=== PATIENT | female | born 1935 | race Two or more races ===

== ENCOUNTER 2025-08-18 16:02 | Inpatient (IN) | payer OTHER ==
[~2025-08-18] VITALS: Ht 144.8 cm; Wt 44.9 kg
--- NOTE | 2025-08-18 16:38 | ECG ---
[facility] Test Date: 2025-08-18 Test Time: 16:22:23 Pat Name: CHRISTA SUTTON Department: Room: Gender: F [employer] Supervisor: FAUSTO : 1935 Requested By: DEZ BUTLER Order Number: [id number] Reading MD: Nuno Diaz Measurements Intervals [place] Rate: 101 P: 45 ND: 175 QRS: -35 QRSD: 88 T: -2 QT: 347 QTc: 450 Interpretive Statements Sinus tachycardia Inferior infarct, old Electronically Signed On 08-18-2025 19:19:47 PDT by Nuno Diaz Please click the below link to view image of tracing.
[2025-08-18] MEDS: HYDROcodone-ACET 5/325MG TAB PO ONE (16:45)
--- NOTE | 2025-08-18 17:27 | DVH ---
CT HEAD WITHOUT CONTRAST INDICATION: L head injury s/p fall EXAM DATE: 08/18/2025 04:52 PM COMPARISON: None RADIATION DOSE: CTDIvol: 50.87 mGy, DLP: 50.87 mGy*cm PROCEDURE: CT scans of the head were obtained from the vertex to the skull base. Sagittal and coronal reconstructions were provided. All CT scans at this medical facility are performed using dose modulation techniques as appropriate t o a performed exam including the following: Automated exposure control was utilized; adjustment of th e MA and/or KV according to patient size; and use of iterative reconstruction technique. FINDINGS: No acute territorial infarct, intracranial hemorrhage, or mass effect. There are global involutional changes with compensatory prominence of the ventricles and sulci. Patchy periventricular and subcorti cesar white matter hypoattenuation is nonspecific but may be related to small vessel ischemic disease. The orbits are normal. There is mild mucosal thickening within the maxillary antra and ethmoid air ce lls. The mastoid air cells are clear. The osseous structures are unremarkable. IMPRESSION: 1. No acute territorial infarct, intracranial hemorrhage, or mass effect. 2. Age-related involutional changes. Chronic microvascular changes.
--- NOTE | 2025-08-18 17:43 | DVH ---
EXAM: CT LS SPINE WO CONTRAST INDICATION: low back pain s/p fall TECHNIQUE: Axial images of the lumbar spine have been obtained along with coronal and sagittal reform atted images. CT scans at this facility use dose modulation, iterative reconstruction, and/or weight based dosing when appropriate to reduce radiation dose to as low as reasonably achievable. COMPARISON: None Dose: CTDIvol: 10.04 mGy, DLP: 283.32 mGy.cm FINDINGS: Age-indeterminate severe compression fractures of T12 and L1 with minimal retropulsion. Age-indetermi maribell vjfm-at-vldrrhey compression fracture of L4. A faint lucency is seen within the right L1 transve rse process such that an acute nondisplaced fracture cannot be excluded. There are degenerative valero es of the lumbar spine characterized by endplate osteophytosis. Intervertebral disc height are maint ained. There is facet arthropathy most pronounced within the lower lumbar spine. There is mild levosc oliosis. The paraspinal soft tissues are unremarkable. There is an incompletely assessed infrarenal a bdominal aortic aneurysm measuring up to at least 3.4 cm. IMPRESSION: 1. Age-indeterminate thoracolumbar fractures as detailed with minimal retropulsion. Comparison with any prior outside imaging is suggested in the assessing acuity and interval change. If clinically in dicated, MRI may be beneficial in further assessment. 2. Possible acute nondisplaced right L1 transverse process fracture. 3. Degenerative changes of the lumbar spine as detailed. 4. Incompletely assessed 3.4 cm abdominal aortic aneurysm. Comparison with any prior imaging is sugg ested in assessing acuity and interval change. If no prior imaging is available, dedicated CTA of t he abdomen/pelvis would be beneficial in further characterization.
--- NOTE | 2025-08-18 17:45 | DVH ---
CLINICAL HISTORY: L neck pain s/p fall TECHNIQUE: CT exam of the cervical spine was performed without intravenous contrast. This exam was pe rformed according to our departmental dose optimization program. Up-to-date CT equipment and radiatio n dose reduction techniques are utilized as appropriate. CTDI 9.09 DLP 9.09 COMPARISON: None Dose: CTDIvol: 9.09 mGy, DLP: 190.8 mGy. cm FINDINGS: There is no acute displaced fracture. There are degenerative changes of the cervical spine character ized by endplate osteophytosis and intervertebral disc space narrowing. There is multilevel mild endp late irregularity. There is grade 1 anterolisthesis of C5 on C6. There is no CT evidence of high-grad e spinal stenosis. There is degenerative uncovertebral and facet hypertrophy without significant neur al foraminal narrowing. The paraspinal soft tissues are unremarkable. IMPRESSION: 1. No acute displaced fracture. 2. Degenerative changes of the cervical spine as detailed.
[2025-08-18 17:56] LABS: Hematocrit 36.5 % (36.0-46.0); Hemoglobin 12.3 g/dL (12.2-16.2); Mean Corpuscular Hemoglobin 30.8 pg (28.0-32.0); Mean Corpuscular Volume 91.1 fL (80.0-100.0); Nucleated Red Blood Cells % 0.1 %
--- NOTE | 2025-08-18 17:59 | DVH ---
EXAM: CT PELVIS WO CONTRAST INDICATION: L hip pain s/p fall TECHNIQUE: Axial images of pelvis without contrast have been obtained along with coronal and sagittal reformatted images. All CT scans at this facility use dose modulation, iterative reconstruction, and /or weight based dosing when appropriate to reduce radiation dose to as low as reasonably achievable. COMPARISON: CT LS SPINE WO CONTRAST on DOS: 08/18/25 FINDINGS: BONES: Significant chronic likely pathologic fracture with prior hardware removal and subsequent surr ounding thickening along the right hip joint. Acute slightly comminuted, largely nondisplaced bilater al pubic tubercle fractures contour abnormalities likely compatible with age-indeterminate insuffici ency fractures of the left inferior pubic ramus and bilateral acetabula. Significant right acetabular osseous remodeling. Correlate for chronic erosive change of the right hip joint status post prior wells rdware removal. Superimposed infection not excluded. MUSCLES: Severe asymmetric atrophy of the right hip abductors. JOINT SPACES: Right hip joint space thickening with increased density TENDONS/LIGAMENTS: Intact. OTHER: Vascular calcifications. Mild stool burden. Mild sigmoid diverticulosis. Superior endplate hei ght loss measuring 20-30 percent of the L4. IMPRESSION: 1. Significant chronic likely pathologic fracture with prior hardware removal and subsequent surround ing thickening along the right hip joint. 2. Acute slightly comminuted, largely nondisplaced bilateral pubic tubercle fractures contour abnorma lities likely compatible with a age-indeterminate insufficiency fractures of the left inferior pubic ramus and bilateral acetabula. 3. Significant right acetabular osseous remodeling. 4. Correlate for chronic erosive change of the right hip joint status post prior hardware removal. 5. Superimposed infection not excluded.
[2025-08-18 18:04] LABS: Chloride 102 mmol/L (98-107); Potassium 4.1 mmol/L (3.5-5.1)
[2025-08-18 18:05] LABS: Anion Gap 11 (5-15); Calcium 8.9 mg/dL (8.7-10.4); Carbon Dioxide 23 mmol/L (20-31)
--- NOTE | 2025-08-18 18:06 | DVH ---
EXAM: XY L SHOULDER 2+ VIEW XRAY INDICATION: Pain L shoulder pain s/p fall TECHNIQUE: 3 views of the left shoulder COMPARISON: None available at the time of dictation. FINDINGS/IMPRESSION: There is no acute fracture, osseous malalignment, or aggressive focal osseous lesion of the left shou lder. There is no radiographically apparent joint space narrowing. Severe degenerative change of the left glenohumeral joint. Likely intra-articular body versus soft tissue calcification measuring up 10 mm of the level of the left proximal humerus. Question age-indeterminate superior endplate height lo ss of the midthoracic vertebra.
[2025-08-18 18:10] LABS: BUN/Creatinine Ratio 25.0 (10.0-20.0); Blood Urea Nitrogen 22 mg/dL (9-23)
--- NOTE | 2025-08-18 18:18 | ED.PDOC ---
History of Present Illness HPI Comments 89-year-old female with a history of hypertension and degenerative disc disease, wheelchair-bound due to previous right hip injury brought in by family for evaluation of body pain after a fall yesterday. Per daughter, patient is not supposed to independently transfer from wheelchair to the commode, however yesterday morning she attempted to do so. She states she felt dizzy and fell while trying to transfer from the toilet to her bed. She states she hit the left side of her head on a carpeted floor, but did not lose consciousness. She is currently complaining of left-sided headache, left neck pain, left shoulder pain, left hip pain and lower back pain. She denies any dizziness, numbness, new focal weakness or other injury. Chief Complaint: Fall Injury Time Seen by MD: 16:16 Allergies: Coded Allergies: NO KNOWN ALLERGIES (Unverified , 08/18/25) Mode of Arrival: Wheelchair Past Medical History PAST MEDICAL HISTORY: HTN Past Medical History (Other): Degenerative disc disease, chronic left shoulder subluxation,?AAA Surgical History: Hysterectomy Surgical History (Other): Right hip GLOBAL MARKETING MANAGER History: No Pertinent GLOBAL MARKETING MANAGER History Family History Family History: Reviewed,noncontributory to illness Social History Smoker: Non-Smoker Alcohol: Denies ETOH Use Drugs: Denies Drug Use Lives In: Home All Other Systems: Reviewed and Negative (Comprehensive systems review obtained and negative except for what is stated in the HPI.) Physical Exam General Appearance: No Apparent Distress HEENT: Other (Pupils and face symmetric. Moist mucous membranes. No facial or scalp hematoma, edema or tenderness) Neck: Full Range of Motion, Normal Inspection, Supple, Tender Lateral (Left paraspinal and lateral neck soft tissue tenderness ) Respiratory: Chest Non-Tender, Lungs Clear, No Accessory Muscle Use, No Respiratory Distress, Normal Breath Sounds Cardiovascular: No Edema, No JVD, Regular Rate/Rhythm Breast Exam: Deferred Gastrointestinal: Non Tender, Soft Genitalia: Deferred Pelvic: Deferred Rectal: Deferred Extremities: Normal inspection, Normal range of motion, No pedal edema Musculoskeletal : Location: Left Extremity Location: Back (Lumbar midline and left paraspinal tenderness), Hip (Left hip tenderness), Pelvis (Left inguinal tenderness and pubic symphysis area tenderness) Neurologic: Alert (Oriented x4), Other (Moves all extremities. Sensation grossly intact all extremities.) Cerebellar Function: NOT DONE Reflexes: NOT DONE Skin: Dry, Normal Color, Warm, Other (Left shoulder bruising with soft tissue tenderness.) Lymphatic: NOT DONE Was a procedure done? Was a procedure done?: No EKG EKG : Comments Sinus tach, rate 101, normal WA and QRS intervals, QTC 450, left axis deviation, possible old inferior infarct, nonspecific T change. Differential Dx Considerations may include: Contusion, sprain, strain, fracture, dislocation, electrolyte imbalance, CVA, TIA, infection, among others X-Ray, Labs, Meds, VS Vital Signs Date Time Temp Pulse Resp B/P (MAP) Pulse Ox O2 Delivery O2 Flow Rate FiO2 08/18/25 19:50 19 95 Room Air* 0 21 08/18/25 19:40 99.0 95 19 132/107 (115) 95 99.0 08/18/25 16:22 101 08/18/25 16:09 98.1 101 18 106/71 94 98.1 Lab Test 08/18/25 19:15 08/18/25 17:44 08/18/25 16:28 Range/Units Troponin I High Sensitivity 3 L < 3 L </=34 ng/L White Blood Count 6.5 4.4-10.8 10^3/uL Red Blood Count 4.00 4.0-5.20 10^6/uL Hemoglobin 12.3 12.2-16.2 g/dL Hematocrit 36.5 36.0-46.0 % Mean Corpuscular Volume 91.1 80.0-100.0 fL Mean Corpuscular Hemoglobin 30.8 28.0-32.0 pg Mean Corpuscular Hemoglobin Concent 33.8 32.0-36.0 g/dL Red Cell Distribution Width 13.1 11.8-14.3 % Platelet Count 168 140-450 10^3/uL Mean Platelet Volume 8.3 6.9-10.8 fL Neutrophils (%) (Auto) 60.7 37.0-80.0 % Lymphocytes (%) (Auto) 28.2 10.0-50.0 % Monocytes (%) (Auto) 7.3 0.0-12.0 % Eosinophils (%) (Auto) 3.1 0.0-7.0 % Basophils (%) (Auto) 0.7 0.0-2.0 % Neutrophils # (Auto) 3.9 1.6-8.6 10 ^3/uL Lymphocytes # (Auto) 1.8 0.4-5.4 10 ^3/uL Monocytes # (Auto) 0.5 0-1.3 10 ^3/uL Eosinophils # (Auto) 0.2 0-0.8 10 ^3/uL Basophils # (Auto) 0 0-0.2 10 ^3/uL Nucleated Red Blood Cells 0.1 % Sodium Level 136 136-145 mmol/L Potassium Level 4.1 3.5-5.1 mmol/L Chloride Level 102 98-107 mmol/L Carbon Dioxide Level 23 20-31 mmol/L Anion Gap 11 5-15 Blood Urea Nitrogen 22 9-23 mg/dL Creatinine 0.88 0.550-1.02 mg/dL Glomerular Filtration Rate Calc 63 >90 mL/min BUN/Creatinine Ratio 25.0 H 10.0-20.0 Serum Glucose 121 H 74-106 mg/dL Calcium Level 8.9 8.7-10.4 mg/dL B-Type Natriuretic Peptide 155.83 0-100 pg/mL POC Glucose 169 H 70-106 mg/dl Current Medications Medications (Trade) Dose Ordered Sig/Pina Route Start Time Stop Time Status Last Admin Acetaminophen/ Hydrocodone Bitart ([place] 5/325MG Tab) 1 tab ONCE ONCE PO 08/18/25 16:45 08/18/25 16:46 DC 08/18/25 16:45 PROCEDURE(s): HWOCT - HEAD WITHOUT CONTRAST REASON: L head injury s/p fall ORDER NUMBER(s): [id number], ACCESSION NUMBER(s): [id number] CT HEAD WITHOUT CONTRAST INDICATION: L head injury s/p fall EXAM DATE: 08/18/2025 04:52 PM COMPARISON: None RADIATION DOSE: CTDIvol: 50.87 mGy, DLP: 50.87 mGy*cm PROCEDURE: CT scans of the head were obtained from the vertex to the skull base. Sagittal and coronal reconstructions were provided. All CT scans at this medical facility are performed using dose modulation techniques as appropriate to a performed exam including the following: Automated exposure control was utilized; adjustment of the MA and/or KV according to patient size; and use of iterative reconstruction technique. FINDINGS: No acute territorial infarct, intracranial hemorrhage, or mass effect. There are global involutional changes with compensatory prominence of the ventricles and sulci. Patchy periventricular and subcortical white matter hypoattenuation is nonspecific but may be related to small vessel ischemic disease. The orbits are normal. There is mild mucosal thickening within the maxillary antra and ethmoid air cells. The mastoid air cells are clear. The osseous structures are unremarkable. IMPRESSION: 1. No acute territorial infarct, intracranial hemorrhage, or mass effect. 2. Age-related involutional changes. Chronic microvascular changes. EDURE(s): CS2 - CERVICAL WITHOUT CONTRAST REASON: L neck pain s/p fall ORDER NUMBER(s): [id number], ACCESSION NUMBER(s): [id number] CLINICAL HISTORY: L neck pain s/p fall TECHNIQUE: CT exam of the cervical spine was performed without intravenous contrast. This exam was performed according to our departmental dose optimization program. Up-to-date CT equipment and radiation dose reduction techniques are utilized as appropriate. CTDI 9.09 DLP 9.09 COMPARISON: None Dose: CTDIvol: 9.09 mGy, DLP: 190.8 mGy. cm FINDINGS: There is no acute displaced fracture. There are degenerative changes of the cervical spine characterized by endplate osteophytosis and intervertebral disc space narrowing. There is multilevel mild endplate irregularity. There is grade 1 anterolisthesis of C5 on C6. There is no CT evidence of high-grade spinal stenosis. There is degenerative uncovertebral and facet hypertrophy without significant neural foraminal narrowing. The paraspinal soft tissues are unremarkable. IMPRESSION: 1. No acute displaced fracture. 2. Degenerative changes of the cervical spine as detailed. EDURE(s): LSHD2 - L SHOULDER 2+ VIEW XRAY REASON: L shoulder pain s/p fall ORDER NUMBER(s): [id number], ACCESSION NUMBER(s): [id number] EXAM: XY L SHOULDER 2+ VIEW XRAY INDICATION: Pain L shoulder pain s/p fall TECHNIQUE: 3 views of the left shoulder COMPARISON: None available at the time of dictation. FINDINGS/IMPRESSION: There is no acute fracture, osseous malalignment, or aggressive focal osseous lesion of the left shoulder. There is no radiographically apparent joint space narrowing. Severe degenerative change of the left glenohumeral joint. Likely intra-articular body versus soft tissue calcification measuring up 10 mm of the level of the left proximal humerus. Question age-indeterminate superior endplate height loss of the midthoracic vertebra. EDURE(s): LS2CT - LS SPINE WO CONTRAST REASON: low back pain s/p fall ORDER NUMBER(s): [id number], ACCESSION NUMBER(s): [id number] EXAM: CT LS SPINE WO CONTRAST INDICATION: low back pain s/p fall TECHNIQUE: Axial images of the lumbar spine have been obtained along with coronal and sagittal reformatted images. CT scans at this facility use dose modulation, iterative reconstruction, and/or weight based dosing when appropriate to reduce radiation dose to as low as reasonably achievable. COMPARISON: None Dose: CTDIvol: 10.04 mGy, DLP: 283.32 mGy.cm FINDINGS: Age-indeterminate severe compression fractures of T12 and L1 with minimal retropulsion. Age-indeterminate gmce-yj-brgvytae compression fracture of L4. A faint lucency is seen within the right L1 transverse process such that an acute nondisplaced fracture cannot be excluded. There are degenerative changes of the lumbar spine characterized by endplate osteophytosis. Intervertebral disc height are maintained. There is facet arthropathy most pronounced within the lower lumbar spine. There is mild levoscoliosis. The paraspinal soft tissues are unremarkable. There is an incompletely assessed infrarenal abdominal aortic aneurysm measuring up to at least 3.4 cm. IMPRESSION: 1. Age-indeterminate thoracolumbar fractures as detailed with minimal retropulsion. Comparison with any prior outside imaging is suggested in the assessing acuity and interval change. If clinically indicated, MRI may be beneficial in further assessment. 2. Possible acute nondisplaced right L1 transverse process fracture. 3. Degenerative changes of the lumbar spine as detailed. 4. Incompletely assessed 3.4 cm abdominal aortic aneurysm. Comparison with any prior imaging is suggested in assessing acuity and interval change. If no prior imaging is available, dedicated CTA of the abdomen/pelvis would be be neficial in further characterization. EDURE(s): PL2CT - PELVIS WO CONTRAST REASON: L hip pain s/p fall ORDER NUMBER(s): [id number], ACCESSION NUMBER(s): [id number] EXAM: CT PELVIS WO CONTRAST INDICATION: L hip pain s/p fall TECHNIQUE: Axial images of pelvis without contrast have been obtained along with coronal and sagittal reformatted images. All CT scans at this facility use dose modulation, iterative reconstruction, and/or weight based dosing when appropriate to reduce radiation dose to as low as reasonably achievable. COMPARISON: CT LS SPINE WO CONTRAST on DOS: 08/18/25 FINDINGS: BONES: Significant chronic likely pathologic fracture with prior hardware removal and subsequent surrounding thickening along the right hip joint. Acute slightly comminuted, largely nondisplaced bilateral pubic tubercle fractures contour abnormalities likely compatible with age-indeterminate insufficiency fractures of the left inferior pubic ramus and bilateral acetabula. Significant right acetabular osseous remodeling. Correlate for chronic erosive change of the right hip joint status post prior hardware removal. Superimposed infection not excluded. MUSCLES: Severe asymmetric atrophy of the right hip abductors. JOINT SPACES: Right hip joint space thickening with increased density TENDONS/LIGAMENTS: Intact. OTHER: Vascular calcifications. Mild stool burden. Mild sigmoid diverticulosis. Superior endplate height loss measuring 20-30 percent of the L4. IMPRESSION: 1. Significant chronic likely pathologic fracture with prior hardware removal and subsequent surrounding thickening along the right hip joint. 2. Acute slightly comminuted, largely nondisplaced bilateral pubic tubercle fractures contour abnormalities likely compatible with a age-indeterminate i nsufficiency fractures of the left inferior pubic ramus and bilateral acetabula. 3. Significant right acetabular osseous remodeling. 4. Correlate for chronic erosive change of the right hip joint status post prior hardware removal. 5. Superimposed infection not excluded. X-Ray, Labs, Meds, VS Comment 89-year-old female with a history of degenerative disc disease, hypertension and AAA presenting with body pain after a ground level fall Vitals remarkable for heart rate 101, oxygen saturation 94% on room air Exam remarkable for left-sided neck tenderness, left shoulder tenderness and bruising, left low back, left hip, left inguinal and pubic symphysis tenderness to palpation Rhythm strip independently interpreted by me: Sinus tach, rate 101, no ectopy. CT head, CT C-spine and left shoulder x-rays unremarkable for any acute injury CT lumbar spine: IMPRESSION: 1. Age-indeterminate thoracolumbar fractures as detailed with minimal retropulsion. Comparison with any prior outside imaging is suggested in the assessing acuity and interval change. If clinically indicated, MRI may be beneficial in further assessment. 2. Possible acute nondisplaced right L1 transverse process fracture. 3. Degenerative changes of the lumbar spine as detailed. 4. Incompletely assessed 3.4 cm abdominal aortic aneurysm. Comparison with any prior imaging is suggested in assessing acuity and interval change. If no prior imaging is available, dedicated CTA of the abdomen/pelvis would be beneficial in further characterization. CT pelvis: IMPRESSION: 1. Significant chronic likely pathologic fracture with prior hardware removal and subsequent surrounding thickening along the right hip joint. 2. Acute slightly comminuted, largely nondisplaced bilateral pubic tubercle fractures contour abnormalities likely compatible with a age-indeterminate insufficiency fractures of the left inferior pubic ramus and bilateral a cetabula. 3. Significant right acetabular osseous remodeling. 4. Correlate for chronic erosive change of the right hip joint status post prior hardware removal. 5. Superimposed infection not excluded. CBC, basic metabolic panel, BNP and troponin unremarkable. UA pending. Patient treated with the following in the ED: [place] 5/325 mg p.o. On re-evaluation at 6:57 p.m., the patient is still had not been medicated, so was still in pain. Plan is to admit the patient for pain control and ortho/PT/OT evaluation. Time of 1ST Reevaluation: 18:57 Reevaluation 1ST: Unchanged Patient Education/Counseling: Diagnosis, Treatment, Need For Follow Up Family Education/Counseling: Diagnosis, Treatment, Need For Follow Up SEPSIS Sepsis Screen Date sepsis recognized/suspect: Aug 18, 2025 Time Sepsis recognized/suspect: 1609 Recent Procedure: No On Antibiotic Therapy: No Respiratory Rate >20: No Heart Rate >90: Yes Temp<36 C (96.8 F) or >38.3 C: No SBP <90 or MAP <65 mmHG: No New Acute Mental Status Change: No Is the patient on CPAP, BIPAP,: No SEPSIS EXCLUSION NOTE: Sepsis Exclusion Note: Patient presents with SIRS criteria, but the SIRS response is attributed to [ pain], not a suspected infection. Sepsis bundle is not initiated at this time, due to this reason. Further management will focus on the treatment of the above condition (s). Physician Orders Electrocardigram (08/18/25 16:36) Urinalysis (08/18/25 16:39) Head Without Contrast (08/18/25 16:39) Cervical Without Contrast (08/18/25 16:39) Ls Spine Wo Contrast (08/18/25 16:39) Pelvis Wo Contrast (08/18/25 16:39) L Shoulder 2+ View Xray (08/18/25 16:39) Vital Signs Date Time Temp Pulse Resp B/P (MAP) Pulse Ox O2 Delivery O2 Flow Rate FiO2 08/18/25 19:50 19 95 Room Air* 0 21 08/18/25 19:40 99.0 95 19 132/107 (115) 95 99.0 08/18/25 16:22 101 08/18/25 16:09 98.1 101 18 106/71 94 98.1 Laboratory Tests Test 08/18/25 17:44 White Blood Count 6.5 10^3/uL (4.4-10.8) Medications Medications Dose Ordered Sig/Pina Route Start Time Stop Time Status Last Admin Dose Admin Acetaminophen/ Hydrocodone Bitart 1 tab ONCE ONCE PO 08/18/25 16:45 08/18/25 16:46 DC 08/18/25 16:45 Departure 1 Departure Time of Disposition: 18:58 Impression: Primary Impression: Pubic tubercle fracture Qualified Codes: S32.599A - Other specified fracture of unspecified pubis, i nitial encounter for closed fracture Additional Impression: Lumbar transverse process fracture Qualified Codes: S32.009A - Unspecified fracture of unspecified lumbar vertebra, initial encounter for closed fracture Disposition: ADMITTED INPATIENT Admit to: Med Surg Condition: Guarded Critical Care Note Critical Care Time?: No Stability Stability form required: No Heart Score Heart Score: Heart Score Response (Comments) Value History N/A 0 EKG N/A 0 Age N/A 0 Risk Factors N/A 0 Troponin N/A 0 Total 0 DEZ FLORES MD Aug 18, 2025 18:18
[2025-08-18 18:27] LABS: Glucose 121 mg/dL (74-106); Sodium 136 mmol/L (136-145)
[2025-08-18 19:50] VITALS: RESP 19; O2SAT 95
--- NOTE | 2025-08-18 22:55 | DVHHPRES ---
History of Present Illness Resident Creating Document: RYLAN TAM History of Present Illness Ms. Lundy is an 89-year-old female with prior medical history of hypertension, who presents today with chief complaint of back pain secondary to a fall. The patient is accompanied by her daughter who states that the patient is wheelchair-bound and fell at home on Monday morning while trying to transfer onto her commode by herself. The patient landed on the carpeted ground and hit her hip, back, head, and shoulder. The patient states that she immediately felt intense sharp pain on her lower back, nonradiating, intensity 10/10, aggravated by moving and touching the area, without relieving factors. Per the patient's daughter, in March 2025 the patient was taken to [facility] with a vertebral fracture. Persistent worsening of the pain prompted the patient to seek medical care at the ED. On evaluation in the ED, patient was tachycardic an d hypertensive. Initial labs CBC and chemical panel within normal range. CT lumbar spine shows age-indeterminate thoracolumbar fractures and possible acute nondisplaced right L1 transverse process fracture. pelvic CT shows acute slightly comminuted, largely nondisplaced bilateral pubic tubercle fractures. She was started on IV pain regimen. She was admitted for further workup and monitoring. Cardiovascular: HTN Musculoskeletal: Other (Vertebral fracture) Past Surgical History: Hysterectomy, Other (Hip replacement hardware removal), Total hip replacement Family History: None Smoke: No ALCOHOL: none Drugs: None Lives: with Family Review of Systems Review of Systems Constitutional: Denies weight loss, fever and chills. HEENT: Denies changes in vision and hearing. Respiratory: Denies shortness of breath and cough Cardiovascular: Denies chest discomfort or palpitations GI: Denies abdominal distention, abdominal pain, diarrhea : Denies dysuria and urinary frequency. Musculoskeletal: Refers neck, shoulder, lower back, and left hip pain Skin: Denies rash and pruritus. Neurological: denies dizziness headache vision or hearing problems Allergies: Coded Allergies: NO KNOWN ALLERGIES (Unverified , 08/18/25) Medications Current Medications Medications Dose Ordered Sig/Pina Route Start Time Stop Time Status Last Admin Dose Admin Lidocaine 1 patch DAILY TOP 08/19/25 10:00 Morphine Sulfate 1 mg Q6HP PRN IV 08/18/25 22:30 Exam Vital Signs Vital Signs Date Time Temp Pulse Resp B/P (MAP) Pulse Ox O2 Delivery O2 Flow Rate FiO2 08/18/25 19:50 19 95 Room Air* 0 21 08/18/25 19:40 99.0 95 132/107 (115) 99.0 Exam General: The patient alert and oriented in person place and time. Patient following commands HEENT: Normocephalic, atraumatic, normal reactive pupils, EOM intact, pink conjunctiva, pink moist mucous membrane Respiratory/pulmonary: Bilateral chest expansion, clear lungs bilaterally, vesicular murmurs present in almost all lung riley, no associated crackles or wheezes. Cardiovascular: Normal RRR, normal S1 and S2, no murmurs Abdomen: Abdomen nondistended, normal bowel sounds, soft, there is no pain to palpation in any of the abdominal quadrants, no palpable masses. Extremities: There are no deformities, there is no peripheral edema present at the lower extremities, decreased ability to flex left hip, pain on palpation of lower back and left and right hip, normal pulses are present Skin: No rashes or pruritus, there is no sacral edema present at this time. Neurological: Intact cranial nerves with no focal neurologic deficits Labs/Xrays Labs Test 08/18/25 19:15 08/18/25 17:44 08/18/25 16:28 Range/Units Troponin I High Sensitivity 3 L </=34 ng/L White Blood Count 6.5 4.4-10.8 10^3/uL Red Blood Count 4.00 4.0-5.20 10^6/uL Hemoglobin 12.3 12.2-16.2 g/dL Hematocrit 36.5 36.0-46.0 % Mean Corpuscular Volume 91.1 80.0-100.0 fL Mean Corpuscular Hemoglobin 30.8 28.0-32.0 pg Mean Corpuscular Hemoglobin Concent 33.8 32.0-36.0 g/dL Red Cell Distribution Width 13.1 11.8-14.3 % Platelet Count 168 140-450 10^3/uL Mean Platelet Volume 8.3 6.9-10.8 fL Neutrophils (%) (Auto) 60.7 37.0-80.0 % Lymphocytes (%) (Auto) 28.2 10.0-50.0 % Monocytes (%) (Auto) 7.3 0.0-12.0 % Eosinophils (%) (Auto) 3.1 0.0-7.0 % Basophils (%) (Auto) 0.7 0.0-2.0 % Neutrophils # (Auto) 3.9 1.6-8.6 10 ^3/uL Lymphocytes # (Auto) 1.8 0.4-5.4 10 ^3/uL Monocytes # (Auto) 0.5 0-1.3 10 ^3/uL Eosinophils # (Auto) 0.2 0-0.8 10 ^3/uL Basophils # (Auto) 0 0-0.2 10 ^3/uL Nucleated Red Blood Cells 0.1 % Sodium Level 136 136-145 mmol/L Potassium Level 4.1 3.5-5.1 mmol/L Chloride Level 102 98-107 mmol/L Carbon Dioxide Level 23 20-31 mmol/L Anion Gap 11 5-15 Blood Urea Nitrogen 22 9-23 mg/dL Creatinine 0.88 0.550-1.02 mg/dL Glomerular Filtration Rate Calc 63 >90 mL/min BUN/Creatinine Ratio 25.0 H 10.0-20.0 Serum Glucose 121 H 74-106 mg/dL Calcium Level 8.9 8.7-10.4 mg/dL B-Type Natriuretic Peptide 155.83 0-100 pg/mL POC Glucose 169 H 70-106 mg/dl SEPSIS Sepsis Screen Date sepsis recognized/suspect: Aug 18, 2025 Time Sepsis recognized/suspect: 1609 Recent Procedure: No On Antibiotic Therapy: No Respiratory Rate >20: No Heart Rate >90: Yes Temp<36 C (96.8 F) or >38.3 C: No SBP <90 or MAP <65 mmHG: No New Acute Mental Status Change: No Is the patient on CPAP, BIPAP,: No Physician Orders Electrocardigram (08/18/25 16:36) Urinalysis (08/18/25 16:39) Head Without Contrast (08/18/25 16:39) Cervical Without Contrast (08/18/25 16:39) Ls Spine Wo Contrast (08/18/25 16:39) Pelvis Wo Contrast (08/18/25 16:39) L Shoulder 2+ View Xray (08/18/25 16:39) Admit (08/18/25 22:21) Code Status (08/18/25 22:21) Vital Signs .PER UNIT PROTOCOL (08/18/25 22:21) Review Orders With Adm. (08/18/25 22:21) Notify Md Of Changes From Base (08/18/25 22:21) Advance Directive (08/18/25 22:21) Patient Condition (08/18/25 22:21) Allergies (08/18/25 22:21) Stat Ekg For Chest Pain (08/18/25 22:21) Notify Md Of Changes From Base (08/18/25 22:21) Emergency Dysrhythmia Protocol (08/18/25 22:21) Rhythm Strips Once Every Shift (08/18/25 22:21) PTPTT (08/18/25 22:21) Hepatic Panel (08/18/25 22:21) Thyroid Stimulating Hormone (08/18/25 22:21) Vitamin D, 25-Hydroxy (08/18/25 22:21) Magnesium (08/18/25 22:21) Phosphorus (08/18/25 22:21) Hemoglobin A1c (08/18/25 22:21) Lactic Acid W/ Reflex Order (08/18/25 22:21) Vitamin B12 (08/18/25 22:21) Consultdr. Fabrice Beck(Spine) (08/18/25 22:21) Drug Screen (08/18/25 22:21) Lidocaine 5% Topical Patch (Lidoderm 5% (08/19/25 10:00) Morphine Sulfate Injection (08/18/25 22:30) Vital Signs Date Time Temp Pulse Resp B/P (MAP) Pulse Ox O2 Delivery O2 Flow Rate FiO2 08/18/25 19:50 19 95 Room Air* 0 21 08/18/25 19:40 99.0 95 19 132/107 (115) 95 99.0 08/18/25 16:22 101 08/18/25 16:09 98.1 101 18 106/71 94 98.1 Laboratory Tests Test 08/18/25 17:44 White Blood Count 6.5 10^3/uL (4.4-10.8) Medications Medications Dose Ordered Sig/Pina Route Start Time Stop Time Status Last Admin Dose Admin Acetaminophen/ Hydrocodone Bitart 1 tab ONCE ONCE PO 08/18/25 16:45 08/18/25 16:46 DC 08/18/25 16:45 1 TAB Assessment/Plan Assessment/Plan Assessment and Plan: Acute nondisplaced right L1 transverse process fracture -CT lumbar spine: Possible acute nondisplaced right L1 transfer process fracture -[place] 5/325 mg p.o. once -Morphine 1 mg IV q.6 hours PRN -Spine surgery consult placed -Patient placed on NPO pending spine surgery evaluation Severe age indeterminate thoracolumbar fractures with minimal retropulsion -CT lumbar spine: Age-indeterminate severe compression fractures of T12 and L1 with minimal retropulsion. Age-indeterminate mild to moderate compression fracture of L4. -As above Acute slightly comminuted, nondisplaced bilateral pubic tubercle fractures -CT pelvis: Acute slightly comminuted, largely nondisplaced bilateral pubic tubercle fractures contour abnormalities likely compatible with a age- indeterminate insufficiency fractures of the left inferior pubic ramus and bilateral acetabula. -As above Abdominal aortic aneurysm -CT lumbar spine: Incompletely assessed 3.4 cm abdominal aortic aneurysm. -Outpatient follow-up Hypertension -Losartan 50 mg p.o. daily Diet: NPO GI prophylaxis: Protonix 40 mg IV daily DVT prophylaxis: Lovenox 40 mg sc daily Case discussed with Dr. Thomason Goals of care discussed with the patient and her daughter for over 27 minutes. Full code. Plan discussed with: Patient, Daughter My Orders Orders - RYLAN TAM RESIDENT Procedure Category Date Status Time Admit ADMIT 08/18/25 Transmitted 22:21 Code Status CODE 08/18/25 Transmitted 22:21 Vital Signs BANNER 08/18/25 In Process 22:21 Review Orders With BANNER 08/18/25 In Process Adm. 22:21 Notify Of Changes BANNER 08/18/25 In Process From Base 22:21 Advance Directive [place]AN[place] 08/18/25 In Process 22:21 Patient Condition ORDERS 08/18/25 Transmitted 22:21 Allergies BANNER 08/18/25 In Process 22:21 Stat Ekg For Chest BANNER 08/18/25 In Process Pain 22:21 Notify Of Changes BANNER 08/18/25 In Process From Base 22:21 Emergency Dysrhythmia BANNER 08/18/25 In Process Protocol 22:21 Rhythm Strips Once BANNER 08/18/25 In Process Every Shift 22:21 PTPTT LAB 08/18/25 Logged 22:21 Hepatic Panel LAB 08/18/25 In Process 22:21 Thyroid Stimulating LAB 08/18/25 In Process Hormone 22:21 Vitamin D, 25-Hydroxy LAB 08/18/25 In Process 22:21 Magnesium LAB 08/18/25 In Process 22:21 Phosphorus LAB 08/18/25 In Process 22:21 Hemoglobin A1c LAB 08/18/25 In Process 22:21 Lactic Acid W/ Reflex LAB 08/18/25 Logged Order 22:21 Vitamin B12 LAB 08/18/25 In Process 22:[address] Fabrice CONS 08/18/25 Transmitted [place](Spine) 22:21 Drug Screen LAB 08/18/25 Logged 22:21 Lidocaine 5% Topical PHA 08/19/25 In Process Patch (Lidoderm 5% 10:00 Morphine Sulfate PHA 08/18/25 In Process Injection 22:30 Date of Service: Aug 18, 2025 Billing Provider: PAM THOMASON MD Common Visit Codes: [id number] INP/OBS CARE (HIGH) Secondary Visit Codes: [id number] CARE PLAN 30 MINUTES RYLAN ATM RESIDENT Aug 18, 2025 22:55 ABISAI [place] RESIDENT Aug 19, 2025 04:20
[2025-08-18 23:17] LABS: Alanine Aminotransferase 14.0 U/L (7-40); Albumin 4.3 g/dL (3.2-4.8); Alkaline Phosphatase 79.0 U/L (46-116); Bilirubin, Direct 0.2 mg/dL (<0.3); Magnesium 1.9 mg/dL (1.6-2.6); Total Protein 7.9 g/dL (5.7-8.2)
[2025-08-18 23:18] LABS: Bilirubin, Total 0.7 mg/dL (0.2-1.0)
[2025-08-18 23:20] LABS: Amphetamine Screen, Urine Neg (NEGATIVE); Barbiturate Scree,Urine Neg (NEGATIVE); Benzodiazephine Screen, Urine Neg (NEGATIVE); Cannabinoid Screen, Urine Neg (NEGATIVE); Cocaine Screen, Urine Neg (NEGATIVE); Opiate Scree,Urine Neg (NEGATIVE); Phencyclidine Screen, Urine Neg (NEGATIVE)
[2025-08-19] VITALS (7 sets, daily range): BP systolic 106–161; BP diastolic 60–124; PULSE 60–89; RESP 16–18; TEMP 97.2–98.6; O2SAT 93–98
[2025-08-19 00:14] LABS: INR 1.03 (0.9-1.15); Partial Thromboplastin Time 30.0 SEC (24.5-34.5); Prothrombin Time 10.9 sec (9.3-11.8)
[2025-08-19] MEDS: MORPHINE SULFATE INJ 2 MG/ml SYRG IV ONE (00:46)
[2025-08-19] MEDS ORDERED: LOSA-534 PO (01:33)
[2025-08-19] MEDS ORDERED: ASPI81CH59 PO (01:33)
[2025-08-19] MEDS ORDERED: MELO15TA29 PO (01:33)
[2025-08-19] MEDS ORDERED: DICL1GEL73 TOP (01:33)
[2025-08-19] MEDS ORDERED: LACT10SO3 PO (01:34)
[2025-08-19] MEDS ORDERED: SENN-105 PO (01:34)
[2025-08-19] MEDS: PANTOPRAZOLE 40 MG/10 ML VIAL INJ IV ONE (04:21)
[2025-08-19] MEDS: SODIUM CHLORIDE 0.9% 1,000 ML IV SCH (04:22)
[2025-08-19 07:40] LABS: Hematocrit 37.1 % (36.0-46.0); Hemoglobin 12.6 g/dL (12.2-16.2); Mean Corpuscular Hemoglobin 30.3 pg (28.0-32.0); Mean Corpuscular Volume 89.1 fL (80.0-100.0); Nucleated Red Blood Cells % 0.1 %
[2025-08-19] MEDS: MORPHINE SULFATE INJ 2 MG/ml SYRG IV PRN (08:39)
[2025-08-19] MEDS: PANTOPRAZOLE 40 MG/10 ML VIAL INJ IV SCH (08:40)
[2025-08-19 08:59] LABS: Carbon Dioxide 28 mmol/L (20-31); Chloride 106 mmol/L (98-107)
[2025-08-19 09:00] LABS: Anion Gap 9 (5-15); Sodium 143 mmol/L (136-145)
[2025-08-19 09:06] LABS: BUN/Creatinine Ratio 13.8 (10.0-20.0)
[2025-08-19 09:23] LABS: Blood Urea Nitrogen 8 mg/dL (9-23); Calcium 8.6 mg/dL (8.7-10.4); Glucose 116 mg/dL (74-106); Potassium 3.4 mmol/L (3.5-5.1)
--- NOTE | 2025-08-19 10:32 | DVHPNRES ---
Progress Note Date Seen: Aug 19, 2025 Resident Creating Document: JACKIE MARTINEZ RESIDENT Has the PT tested + for MRSA If YES, has PT been informed?: No Medical Necessity Reason Pt with a Central, PICC or Fol: No Subjective Review of Systems Patient is a Citizen Of [place]-speaking 89-year-old female with past medical history of hypertension and degenerative disc disease presented to [facility] ED with complaint of body pain and headache following a fall at home. According to her daughter, the patient attempted to transfer independently from the wheelchair to bathroom. During the transfer, she felt dizzy and fell, landing on a carpeted floor and striking the left side of her head, hip, back, and shoulder. She did not lose consciousness. She reports a 10/10 sharp, non- radiating lower back pain aggravated by movement and touch, along with left- sided headache, neck pain, shoulder pain, and hip pain. She denies dizziness, numbness, new focal weakness, or other injuries. Notably, she had a vertebral fracture in March 2025. On ED evaluation, she was tachycardic and hypertensive. Labs including CBC and chemistry panel were within normal limits. Imaging revealed age-indeterminate thoracolumbar fractures, a possible acute nondisplaced right L1 transverse process fracture, and acute, slightly comminuted, largely nondisplaced bilateral pubic tubercle fractures. She was started on IV pain management and admitted for further monitoring and workup. Past medical history: HTN, Vertebral fracture Past surgical history: Hysterectomy, Hip replacement hardware removal, Total hip replacement Social & Personal history: Smoke: No. Alcohol: none. Drugs: None Patient seen and examined at bedside. Patient is alert and oriented to time, place person and responding to all questions. Eyes: No Pain, No Vision change, No Conjunctivae inflammation, No Eyelid inflammation, No Other, No Redness ENT: No Ear pain, No Ear discharge, No Nose pain, No Nose discharge, No Nose congestion, No Mouth pain, No Mouth swelling, No Throat pain, No Throat swelling, No Other Cardiovascular: No Chest Pain, No Palpitations, No Orthopnea, No Paroxysmal No Dyspnea, No Edema, No Lt Headedness, No Other Respiratory: No Cough, No Dry, No Shortness of breath, No SOB with exertion, No Wheezing, No Hemoptysis, No Pleuritic Pain, No Sputum, No Other Gastrointestinal: No Nausea, No Vomiting, No Abdominal Pain, No Diarrhea, No Constipation, No Melena, No Hematochezia, No Other Genitourinary: No Dysuria, No Frequency, No Incontinence, No Hematuria, No Retention, No Other Musculoskeletal: Shoulder pain. No other, No neck pain, No arm pain, No back pain, No hand pain, No leg pain, No foot pain Skin: No Rash, No Lesions, No Jaundice, No Bruising, No Other Objective vital signs Vital Sign Date Time Temp Pulse Resp B/P (MAP) Pulse Ox O2 Delivery O2 Flow Rate FiO2 08/19/25 08:39 79 18 140/79 08/19/25 05:00 98.6 98 98.6 08/19/25 01:29 Room Air* 0 21 Total Intake and Output 08/18/25 08/18/25 08/19/25 14:59 22:59 06:59 Intake Total 540 ml Balance 540 ml medications Current Medications Medications Dose Ordered Sig/Pina Route Start Time Stop Time Status Last Admin Dose Admin Lidocaine 1 patch DAILY TOP 08/19/25 10:00 Morphine Sulfate 1 mg Q6HP PRN IV 08/18/25 22:30 08/19/25 08:39 1 MG Losartan Potassium 50 mg DAILY PO 08/19/25 10:00 Pantoprazole Sodium 40 mg DAILY IV 08/19/25 10:00 08/19/25 08:40 40 MG Sodium Chloride 1,000 ml @ 30 mls/hr Q24H IV 08/19/25 03:00 08/19/25 04:22 30 MLS/HR Examination General: The patient alert and oriented in person place and time. Patient following commands HEENT: Normocephalic, atraumatic, normal reactive pupils, EOM intact, pink conjunctiva, pink moist mucous membrane Respiratory/pulmonary: Bilateral chest expansion, clear lungs bilaterally, vesicular murmurs present in almost all lung riley, no associated crackles or wheezes. Cardiovascular: Normal RRR, normal S1 and S2, no murmurs Abdomen: Abdomen nondistended, normal bowel sounds, soft, there is no pain to palpation in any of the abdominal quadrants, no palpable masses. Extremities: There are no deformities, there is no peripheral edema present at the lower extremities, decreased ability to flex left hip, pain on palpation of lower back and left and right hip, normal pulses are present Skin: No rashes or pruritus, there is no sacral edema present at this time. Neurological: Intact cranial nerves with no focal neurologic deficits laboratory and microbiology Laboratory Tests 08/19/25 07:17 Test 08/19/25 07:17 Range/Units Serum Glucose 116 H 74-106 mg/dL Labs and/or images reviewed: Labs reviewed by me, Image(s) reviewed by me Problem List/Assessment/Plan Problem List/Assessment/Plan Acute nondisplaced right L1 transverse process fracture Severe age indeterminate thoracolumbar fractures with minimal retropulsion Acute slightly comminuted, nondisplaced bilateral pubic tubercle fractures Severe degenerative change of the left glenohumeral joint -CT lumbar spine: Possible acute nondisplaced right L1 transfer process fracture -[place] 5/325 mg p.o. once -Morphine 1 mg IV q.6 hours PRN -Patient placed on NPO pending spine surgery evaluation -Lidocaine 1 patch -CT lumbar spine: Age-indeterminate severe compression fractures of T12 and L1 with minimal retropulsion. Age-indeterminate mild to moderate compression fracture of L4, Acute slightly comminuted, largely nondisplaced bilateral pubic tubercle fractures contour abnormalities likely compatible with a age- indeterminate insufficiency fractures of the left inferior pubic ramus and bilateral acetabula. -Shoulder X-ray: Likely intra-articular body versus soft tissue calcification measuring up 10 mm of the level of the left proximal humerus. Question age- indeterminate superior endplate height loss of the midthoracic vertebra. - spine surgery consulted recommended conservative management Abdominal aortic aneurysm -CT lumbar spine: Incompletely assessed 3.4 cm abdominal aortic aneurysm. -Outpatient follow-up Hypertension -Losartan 50 mg p.o. daily Diet: Cardiac diet GI prophylaxis: Protonix 40 mg IV daily Goals of care: Full code, discussed for >21 minutes on 08/19/25 Plan discussed with patient Plan discussed with Dr. Biggs Plan discussed with: Patient, Daughter Date of Service: Aug 19, 2025 Billing Provider: TANISHA BIGGS MD Common Visit Codes: [id number] INP/OBS CARE(HIGH) Secondary Visit Codes: [id number] CARE PLAN 30 MINUTES JACKIE MARTINEZ Aug 19, 2025 10:32 AYLIN BHAT Aug 19, 2025 21:00 TANISHA BIGGS MD Aug 23, 2025 00:03
[2025-08-19 11:24] LABS: Chloride 106 mmol/L (98-107); Potassium 4.2 mmol/L (3.5-5.1); Sodium 138 mmol/L (136-145)
[2025-08-19 11:25] LABS: Anion Gap 9 (5-15); Calcium 8.8 mg/dL (8.7-10.4); Carbon Dioxide 23 mmol/L (20-31)
[2025-08-19 11:26] LABS: Hematocrit 34.6 % (36.0-46.0); Hemoglobin 11.6 g/dL (12.2-16.2); Mean Corpuscular Hemoglobin 30.9 pg (28.0-32.0); Mean Corpuscular Volume 92.3 fL (80.0-100.0); Nucleated Red Blood Cells % 0.1 %
[2025-08-19 11:30] LABS: BUN/Creatinine Ratio 19.7 (10.0-20.0); Blood Urea Nitrogen 15 mg/dL (9-23); Glucose 99 mg/dL (74-106)
[2025-08-19] MEDS: LOSARTAN POTASSIUM 50 MG TAB PO SCH (11:45)
[2025-08-19] MEDS: LIDOCAINE 5% TOPICAL PATCH TOP SCH (11:45)
--- NOTE | 2025-08-19 13:35 | DVHINCON2 ---
Consultation - Surgical Date Seen: Aug 19, 2025 Referring Physician Referring Physician Attending Doctor: Raj Jimenez Resident Resident Creating Document: RYLAN TAM Reason for Consultation Back pain after fall History of Present Illness History of Present Illness History of Present Illness Ms. Lundy is an 89-year-old female with prior medical history of hypertension, who presents today with chief complaint of back pain secondary to a fall. The patient is accompanied by her daughter who states that the patient is wheelchair-bound and fell at home on Monday morning while trying to transfer onto her commode by herself. The patient landed on the carpeted ground and hit her hip, back, head, and shoulder. The patient states that she immediately felt intense sharp pain on her lower back, nonradiating, intensity 10/10, aggravated by moving and touching the area, without relieving factors. Per the patient's daughter, in March 2025 the patient was taken to [facility] with a vertebral fracture. Persistent worsening of the pain prompted the patient to seek medical care at the ED. On evaluation in the ED, patient was tachycardic and hypertensive. Initial labs CBC and chemical panel within normal range. CT lumbar spine shows age-indeterminate thoracolumbar fractures and possible acute nondisplaced right L1 transverse process fracture. pelvic CT shows acute slightly comminuted, largely nondisplaced bilateral pubic tubercle fractures. She was started on IV pain regimen. She was admitted for further workup and monitoring. Past Medical/Surgical History Past Medical/Surgical History Cardiovascular: HTN Musculoskeletal: Other (Vertebral fracture) Past Surgical History: Hysterectomy, Other (Hip replacement hardware removal), Total hip replacement Family and Social History Family and Social History Family History: None Smoke: No ALCOHOL: none Drugs: None Lives: with Family Allergies and medications Allergies: Coded Allergies: NO KNOWN ALLERGIES (Unverified , 08/18/25) Home Meds Reported Medications Lactulose (Lactulose) 10 Gm/15 Ml Amada, ML PO 08/19/25 Senna (Senna) 8.6 Mg Tab, 2 TAB PO DAILY 08/19/25 Diclofenac Sodium (Topical) (Diclofenac Sodium) 1 % Gel, 2 TOP BID 08/19/25 Meloxicam (Meloxicam) 15 Mg Tab, PO 08/19/25 Aspirin (Aspirin Low Dose) 81 Mg Chw, 1 TAB PO DAILY 08/19/25 Losartan Potassium (Losartan Potassium) 50 Mg Tab, 1 TAB PO DAILY 08/19/25 Review of systems Review of Systems: MSK:Abnormal (Back (Lumbar midline and left paraspinal tenderness), Hip (Left hip tenderness)), NEURO:Normal (Patient is able to move all extremities) Examination Vital signs Imaging: ORDERING PHYSICIAN: DEZ FLORES MD PROCEDURE(s): LS2CT - LS SPINE WO CONTRAST REASON: low back pain s/p fall ORDER NUMBER(s): [id number], ACCESSION NUMBER(s): [id number] EXAM: CT LS SPINE WO CONTRAST INDICATION: low back pain s/p fall TECHNIQUE: Axial images of the lumbar spine have been obtained along with coronal and sagittal reformatted images. CT scans at this facility use dose modulation, iterative reconstruction, and/or weight based dosing when appropriate to reduce radiation dose to as low as reasonably achievable. COMPARISON: None Dose: CTDIvol: 10.04 mGy, DLP: 283.32 mGy.cm FINDINGS: Age-indeterminate severe compression fractures of T12 and L1 with minimal retropulsion. Age-indeterminate [id number] compression fracture of L4. A f aint lucency is seen within the right L1 transverse process such that an acute nondisplaced fracture cannot be excluded. There are degenerative changes of the lumbar spine characterized by endplate osteophytosis. Intervertebral disc height are maintained. There is facet arthropathy most pronounced within the lower lumbar spine. There is mild levoscoliosis. The paraspinal soft tissues are unremarkable. There is an incompletely assessed infrarenal abdominal aortic aneurysm measuring up to at least 3.4 cm. IMPRESSION: 1. Age-indeterminate thoracolumbar fractures as detailed with minimal retropulsion. Comparison with any prior outside imaging is suggested in the assessing acuity and interval change. If clinically indicated, MRI may be beneficial in further assessment. 2. Possible acute nondisplaced right L1 transverse process fracture. 3. Degenerative changes of the lumbar spine as detailed. 4. Incompletely assessed 3.4 cm abdominal aortic aneurysm. Comparison with any prior imaging is suggested in assessing acuity and interval change. If no prior imaging is available, dedicated CTA of the abdomen/pelvis would be beneficial in further characterization. RING PHYSICIAN: DEZ FLORES MD PROCEDURE(s): CS2 - CERVICAL WITHOUT CONTRAST REASON: L neck pain s/p fall ORDER NUMBER(s): [id number], ACCESSION NUMBER(s): [id number] CLINICAL HISTORY: L neck pain s/p fall TECHNIQUE: CT exam of the cervical spine was performed without intravenous contrast. This exam was performed according to our departmental dose optimization program. Up-to-date CT equipment and radiation dose reduction techniques are utilized as appropriate. CTDI 9.09 DLP 9.09 COMPARISON: None Dose: CTDIvol: 9.09 mGy, DLP: 190.8 mGy. cm FINDINGS: There is no acute displaced fracture. There are degenerative changes of the cervical spine characterized by endplate osteophytosis and intervertebral disc space narrowing. There is multilevel mild endplate irregularity. There is grade 1 anterolisthesis of C5 on C6. There is no CT evidence of high-grade spinal stenosis. There is degenerative uncovertebral and facet hypertrophy without significant neural foraminal narrowing. The paraspinal soft tissues are unremarkable. IMPRESSION: 1. No acute displaced fracture. 2. Degenerative changes of the cervical spine as detailed. Vital Signs Date Time Temp Pulse Resp B/P (MAP) Pulse Ox O2 Delivery O2 Flow Rate FiO2 08/19/25 11:45 158/94 08/19/25 09:09 68 18 08/19/25 08:00 98 Room Air* 0 21 08/19/25 05:00 98.6 98.6 Medications Current Medications Medications (Trade) Dose Ordered Sig/Pina Route PRN Reason Start Time Stop Time Status Last Admin Lidocaine (Lidoderm 5% Topical Patch) 1 patch DAILY TOP 08/19/25 10:00 08/19/25 11:45 Morphine Sulfate 1 mg Q6HP PRN IV SEVERE PAIN (7-10 PAIN SCALE) 08/18/25 22:30 08/19/25 08:39 Losartan Potassium (Cozaar Tablet) 50 mg DAILY PO 08/19/25 10:00 08/19/25 11:45 Pantoprazole Sodium (Protonix) 40 mg DAILY IV 08/19/25 10:00 08/19/25 08:40 Sodium Chloride 1,000 ml @ 30 mls/hr Q24H IV 08/19/25 03:00 08/19/25 04:22 Acetaminophen/ Hydrocodone Bitart ([place] 5/325MG Tab) 1 tab Q6HPRN PRN PO MODERATE PAIN (4-6 PAIN SCALE) 08/19/25 10:45 Laboratory Labs Test 08/19/25 10:42 08/18/25 23:35 08/18/25 22:40 08/18/25 19:15 Range/Units White Blood Count 6.4 # 4.4-10.8 10^3/uL Red Blood Count 3.75 L 4.0-5.20 10^6/uL Hemoglobin 11.6 L 12.2-16.2 g/dL Hematocrit 34.6 L 36.0-46.0 % Mean Corpuscular Volume 92.3 80.0-100.0 fL Mean Corpuscular Hemoglobin 30.9 28.0-32.0 pg Mean Corpuscular Hemoglobin Concent 33.5 32.0-36.0 g/dL Red Cell Distribution Width 13.1 11.8-14.3 % Platelet Count 152 140-450 10^3/uL Mean Platelet Volume 8.2 6.9-10.8 fL Neutrophils (%) (Auto) 56.3 37.0-80.0 % Lymphocytes (%) (Auto) 31.9 10.0-50.0 % Monocytes (%) (Auto) 8.2 0.0-12.0 % Eosinophils (%) (Auto) 3.0 0.0-7.0 % Basophils (%) (Auto) 0.6 0.0-2.0 % Neutrophils # (Auto) 3.6 1.6-8.6 10 ^3/uL Lymphocytes # (Auto) 2.0 0.4-5.4 10 ^3/uL Monocytes # (Auto) 0.5 0-1.3 10 ^3/uL Eosinophils # (Auto) 0.2 0-0.8 10 ^3/uL Basophils # (Auto) 0 0-0.2 10 ^3/uL Nucleated Red Blood Cells 0.1 % Sodium Level 138 # 136-145 mmol/L Potassium Level 4.2 3.5-5.1 mmol/L Chloride Level 106 98-107 mmol/L Carbon Dioxide Level 23 20-31 mmol/L Anion Gap 9 5-15 Blood Urea Nitrogen 15 9-23 mg/dL Creatinine 0.76 # 0.550-1.02 mg/dL Glomerular Filtration Rate Calc 75 >90 mL/min BUN/Creatinine Ratio 19.7 10.0-20.0 Serum Glucose 99 74-106 mg/dL Calcium Level 8.8 8.7-10.4 mg/dL Prothrombin Time 10.9 9.3-11.8 sec Prothrombin Time INR 1.03 0.9-1.15 Activated Partial Thromboplast Time 30.0 24.5-34.5 SEC Lactic Acid Level 1.9 0.4-2.0 mmol/L Urine Opiates Screen Neg NEGATIVE Urine Fentanyl Screen Neg NEGATIVE Urine Barbiturates Screen Neg NEGATIVE Urine Phencyclidine Screen Neg NEGATIVE Urine Amphetamines Screen Neg NEGATIVE Urine Benzodiazepines Screen Neg NEGATIVE Urine Cocaine Screen Neg NEGATIVE Urine Cannabinoids Screen Neg NEGATIVE Troponin I High Sensitivity 3 L </=34 ng/L Test 08/18/25 17:44 08/18/25 16:28 Range/Units Hemoglobin A1c 5.6 <5.7 % A1C Phosphorus Level 3.0 2.4-5.1 mg/dL Magnesium Level 1.9 1.6-2.6 mg/dL Total Bilirubin 0.7 0.2-1.0 mg/dL Direct Bilirubin 0.2 <0.3 mg/dL Aspartate Amino Transferase (AST) 27 13-40 U/L Alanine Aminotransferase (ALT) 14 7-40 U/L Alkaline Phosphatase 79 46-116 U/L B-Type Natriuretic Peptide 155.83 0-100 pg/mL Total Protein 7.9 5.7-8.2 g/dL Albumin 4.3 3.2-4.8 g/dL Vitamin B12 Level > 4000 H 211-911 pg/mL Vitamin D 25-Hydroxy 32.2 30.0-100 ng/mL Thyroid Stimulating Hormone (TSH) 0.83 0.55-4.78 uIU/mL POC Glucose 169 H 70-106 mg/dl Examination: GENERAL:Normal, HEENT:Normal, NECK:Normal, LUNGS:Normal, CVS:Normal, ABDOMEN:Normal, MSK:Normal (n thoracolumbar region with palpation, percussion.), MSK:Abnormal, SKIN:Normal, NEURO:Normal, :Normal Problem List/Assessment/Plan Problems: (1) Fracture of T12 vertebra with routine healing (2) Compression fracture of L1 vertebra with routine healing (3) Compression fracture of L4 vertebra with routine healing (4) Lumbar transverse process fracture Assessment and Plan Age-indeterminate severe compression fractures of T12 and L1 with minimal re tropulsion. Age-indeterminate [id number] compression fracture of L4. A faint lucency is seen within the right L1 transverse process such that an acute nondisplaced fracture cannot be excluded. There are degenerative changes of the lumbar spine characterized by endplate osteophytosis Continue care and support per admitting team's discretion Physical therapy evaluation, treatment recommendations and safe discharge planning recommendations Effective pain management including muscle relaxers if the patient is complaining of muscle spasms Discussed radiologic findings and presented treatment options with the patient and family with a automotive service professional Conservative management with rest and physical therapy was chosen by patient and family No barriers to discharge from a spine surgery perspective, patient follow up as an outpatient if she continues to have any difficulty Call with questions Danika Perez [facility] Orthopaedic Spine Surgery nurse practitioner For Dr Brannon Mccormick Patient was examined, chart reviewed, labs evaluated, and diagnostic studies and findings analyzed. Case was discussed with Dr. Fabrice Mccormick who formulated the plan of care. This medical document was created using an electronic medical record system with Amanda Huff [employer] dictation system. Although this document has been carefully reviewed, there might still be some phonetic and typographical errors. These areas are purely typographical due to imperfections of the software programs, and do not reflect any compromise in the patient's medical care. Plan discussed with Plan discussed with: Patient, Daughter, Other (Kristy RN extension [phone]) Visit Coding Surgery Date of Service if different f: Aug 19, 2025 Billing Provider: NINA PEREZ NP Surgery Visit Codes: [id number] - INP CONSULT <55 MIN NINA PEREZ NP Aug 19, 2025 13:35
[2025-08-19] MEDS: CYCLOBENZAPRINE HCL 10 MG TAB PO ONE (16:20)
[2025-08-20] VITALS (8 sets, daily range): BP systolic 101–142; BP diastolic 55–75; PULSE 78–96; RESP 17–19; TEMP 96.9–98.4; O2SAT 94–98
[2025-08-20 07:04] LABS: Hematocrit 32.1 % (36.0-46.0); Hemoglobin 11.3 g/dL (12.2-16.2); Mean Corpuscular Hemoglobin 32.4 pg (28.0-32.0); Mean Corpuscular Volume 92.1 fL (80.0-100.0); Nucleated Red Blood Cells % 0.0 %
[2025-08-20 07:13] LABS: Anion Gap 8 (5-15); Carbon Dioxide 24 mmol/L (20-31); Chloride 106 mmol/L (98-107); Potassium 4.9 mmol/L (3.5-5.1); Sodium 138 mmol/L (136-145)
[2025-08-20 07:20] LABS: BUN/Creatinine Ratio 20.0 (10.0-20.0); Blood Urea Nitrogen 21 mg/dL (9-23); Glucose 91 mg/dL (74-106)
[2025-08-20 07:23] LABS: Calcium 8.3 mg/dL (8.7-10.4)
[2025-08-20] MEDS: SODIUM CHLORIDE 0.9% 250 ML IV ONE (11:33)
--- NOTE | 2025-08-20 17:03 | DVHPNRES ---
Progress Note Date Seen: Aug 20, 2025 Resident Creating Document: JACKIE MARTINEZ RESIDENT Has the PT tested + for MRSA If YES, has PT been informed?: No Medical Necessity Reason Pt with a Central, PICC or Fol: No Subjective Review of Systems Patient is a Swedish-speaking 89-year-old female with past medical history of hypertension and degenerative disc disease presented to [facility] ED with complaint of body pain and headache following a fall at home. According to her daughter, the patient attempted to transfer independently from the wheelchair to bathroom. During the transfer, she felt dizzy and fell, landing on a carpeted floor and striking the left side of her head, hip, back, and shoulder. She did not lose consciousness. She reports a 10/10 sharp, non- radiating lower back pain aggravated by movement and touch, along with left- sided headache, neck pain, shoulder pain, and hip pain. She denies dizziness, numbness, new focal weakness, or other injuries. Notably, she had a vertebral fracture in March 2025. On ED evaluation, she was tachycardic and hypertensive. Labs including CBC and chemistry panel were within normal limits. Imaging revealed age-indeterminate thoracolumbar fractures, a possible acute nondisplaced right L1 transverse process fracture, and acute, slightly comminuted, largely nondisplaced bilateral pubic tubercle fractures. She was started on IV pain management and admitted for further monitoring and workup. 08/20: Patient is seen today at bedside. On evaluation today, she states she is well, pain is manageable. Her vitals have remained stable. Patient was informed of her right to participate in discharge planning and to privacy; she verbalized understanding and agreement with the plan for home hospice. Objective vital signs Vital Sign Date Time Temp Pulse Resp B/P (MAP) Pulse Ox O2 Delivery O2 Flow Rate FiO2 08/20/25 16:48 97.2 90 17 107/55 (72) 94 97.2 08/20/25 08:00 Room Air* 0 21 Total Intake and Output 08/19/25 08/19/25 08/20/25 15:00 23:00 07:00 Intake Total 200 ml 500 ml 340 ml Balance 200 ml 500 ml 340 ml medications Current Medications Medications Dose Ordered Sig/Pina Route Start Time Stop Time Status Last Admin Dose Admin Lidocaine 1 patch DAILY TOP 08/19/25 10:00 08/20/25 10:27 1 PATCH Morphine Sulfate 1 mg Q6HP PRN IV 08/18/25 22:30 08/20/25 15:53 1 MG Losartan Potassium 50 mg DAILY PO 08/19/25 10:00 08/20/25 10:27 50 MG Pantoprazole Sodium 40 mg DAILY IV 08/19/25 10:00 08/20/25 10:26 40 MG Acetaminophen/ Hydrocodone Bitart 1 tab Q6HPRN PRN PO 08/19/25 10:45 Examination General: The patient alert and oriented in person place and time. Patient following commands HEENT: Normocephalic, atraumatic, normal reactive pupils, EOM intact, pink conjunctiva, pink moist mucous membrane Respiratory/pulmonary: Bilateral chest expansion, clear lungs bilaterally, vesicular murmurs present in almost all lung riley, no associated crackles or wheezes. Cardiovascular: Normal RRR, normal S1 and S2, no murmurs Abdomen: Abdomen nondistended, normal bowel sounds, soft, there is no pain to palpation in any of the abdominal quadrants, no palpable masses. Extremities: There are no deformities, there is no peripheral edema present at the lower extremities, decreased ability to flex left hip, pain on palpation of lower back and left and right hip, normal pulses are present Skin: No rashes or pruritus, there is no sacral edema present at this time. Neurological: Intact cranial nerves with no focal neurologic deficits laboratory and microbiology Laboratory Tests 08/20/25 06:18 Test 08/20/25 06:18 Range/Units Serum Glucose 91 74-106 mg/dL Labs and/or images reviewed: Labs reviewed by me, Image(s) reviewed by me Problem List/Assessment/Plan Problem List/Assessment/Plan Acute nondisplaced right L1 transverse process fracture -CT lumbar spine: Possible acute nondisplaced right L1 transfer process fracture -Phil Campbell 5/325 mg p.o. once -Morphine 1 mg IV q.6 hours PRN -Spine surgery consult placed -Patient placed on NPO pending spine surgery evaluation -Lidocaine 1 patch Severe age indeterminate thoracolumbar fractures with minimal retropulsion -CT lumbar spine: Age-indeterminate severe compression fractures of T12 and L1 with minimal retropulsion. Age-indeterminate mild to moderate compression fracture of L4. -As above Acute slightly comminuted, nondisplaced bilateral pubic tubercle fractures -CT pelvis: Acute slightly comminuted, largely nondisplaced bilateral pubic tubercle fractures contour abnormalities likely compatible with a age- indeterminate insufficiency fractures of the left inferior pubic ramus and bilateral acetabula. -As above Severe degenerative change of the left glenohumeral joint -Shoulder X-ray: Likely intra-articular body versus soft tissue calcification measuring up 10 mm of the level of the left proximal humerus. Question age- indeterminate superior endplate height loss of the midthoracic vertebra. Abdominal aortic aneurysm -CT lumbar spine: Incompletely assessed 3.4 cm abdominal aortic aneurysm. -Outpatient follow-up Hypertension -Losartan 50 mg p.o. daily Diet: NPO GI prophylaxis: Protonix 40 mg IV daily Goals of care: Full code, discussed for >16 minutes on 08/20/25 Plan discussed with patient Plan discussed with Dr. Biggs Plan discussed with: Patient, Daughter My Orders My Orders Orders - JACKIE MARTINEZ Procedure Category Date Status Time Complete Blood Count LAB 08/21/25 Verified 04:00 Basic Metabolic Panel LAB 08/21/25 Verified 04:00 Date of Service: Aug 20, 2025 Billing Provider: TANISHA BIGGS MD Common Visit Codes: [id number] INP/OBS CARE(HIGH) JACKIE MARTINEZ Aug 20, 2025 17:03 TANISHA BIGGS MD Aug 23, 2025 00:03
[2025-08-21] VITALS (8 sets, daily range): BP systolic 122–152; BP diastolic 69–81; PULSE 82–92; RESP 17–19; TEMP 98–99.1; O2SAT 94–97
[2025-08-21 05:38] LABS: Hematocrit 31.7 % (36.0-46.0); Hemoglobin 10.9 g/dL (12.2-16.2); Mean Corpuscular Hemoglobin 31.5 pg (28.0-32.0); Mean Corpuscular Volume 91.3 fL (80.0-100.0); Nucleated Red Blood Cells % 0.1 %
[2025-08-21 05:48] LABS: Anion Gap 11 (5-15); Carbon Dioxide 22 mmol/L (20-31); Chloride 106 mmol/L (98-107); Potassium 3.9 mmol/L (3.5-5.1); Sodium 139 mmol/L (136-145)
[2025-08-21 05:50] LABS: Calcium 8.6 mg/dL (8.7-10.4)
[2025-08-21 05:54] LABS: BUN/Creatinine Ratio 22.4 (10.0-20.0); Blood Urea Nitrogen 17 mg/dL (9-23); Glucose 104 mg/dL (74-106)
--- NOTE | 2025-08-21 15:33 | DVHDSRES ---
Discharge Summary Date of Admission Resident Creating Document: JACKIE MARTINEZ RESIDENT Aug 18, 2025 at 22:21 Date of Discharge: Aug 21, 2025 Labs/Diagnostic Data: Laboratory Results Test 08/21/25 05:05 08/18/25 23:35 08/18/25 22:40 08/18/25 19:15 White Blood Count 6.9 10^3/uL (4.4-10.8) Red Blood Count 3.48 10^6/uL (4.0-5.20) Hemoglobin 10.9 g/dL (12.2-16.2) Hematocrit 31.7 % (36.0-46.0) Mean Corpuscular Volume 91.3 fL (80.0-100.0) Mean Corpuscular Hemoglobin 31.5 pg (28.0-32.0) Mean Corpuscular Hemoglobin Concent 34.5 g/dL (32.0-36.0) Red Cell Distribution Width 13.2 % (11.8-14.3) Platelet Count 173 10^3/uL (140-450) Mean Platelet Volume 7.6 fL (6.9-10.8) Neutrophils (%) (Auto) 57.6 % (37.0-80.0) Lymphocytes (%) (Auto) 29.0 % (10.0-50.0) Monocytes (%) (Auto) 9.8 % (0.0-12.0) Eosinophils (%) (Auto) 3.1 % (0.0-7.0) Basophils (%) (Auto) 0.5 % (0.0-2.0) Neutrophils # (Auto) 4.0 10 ^3/uL (1.6-8.6) Lymphocytes # (Auto) 2.0 10 ^3/uL (0.4-5.4) Monocytes # (Auto) 0.7 10 ^3/uL (0-1.3) Eosinophils # (Auto) 0.2 10 ^3/uL (0-0.8) Basophils # (Auto) 0 10 ^3/uL (0-0.2) Nucleated Red Blood Cells 0.1 % Sodium Level 139 mmol/L (136-145) Potassium Level 3.9 mmol/L (3.5-5.1) Chloride Level 106 mmol/L (98-107) Carbon Dioxide Level 22 mmol/L (20-31) Anion Gap 11 (5-15) Blood Urea Nitrogen 17 mg/dL (9-23) Creatinine 0.76 mg/dL (0.550-1.02) Glomerular Filtration Rate Calc 75 mL/min (>90) BUN/Creatinine Ratio 22.4 (10.0-20.0) Serum Glucose 104 mg/dL (74-106) Calcium Level 8.6 mg/dL (8.7-10.4) Prothrombin Time 10.9 sec (9.3-11.8) Prothrombin Time INR 1.03 (0.9-1.15) Activated Partial Thromboplast Time 30.0 SEC (24.5-34.5) Lactic Acid Level 1.9 mmol/L (0.4-2.0) Urine Opiates Screen Neg (NEGATIVE) Urine Fentanyl Screen Neg (NEGATIVE) Urine Barbiturates Screen Neg (NEGATIVE) Urine Phencyclidine Screen Neg (NEGATIVE) Urine Amphetamines Screen Neg (NEGATIVE) Urine Benzodiazepines Screen Neg (NEGATIVE) Urine Cocaine Screen Neg (NEGATIVE) Urine Cannabinoids Screen Neg (NEGATIVE) Troponin I High Sensitivity 3 ng/L (</=34) Test 08/18/25 17:44 08/18/25 16:28 Hemoglobin A1c 5.6 % A1C (<5.7) Phosphorus Level 3.0 mg/dL (2.4-5.1) Magnesium Level 1.9 mg/dL (1.6-2.6) Total Bilirubin 0.7 mg/dL (0.2-1.0) Direct Bilirubin 0.2 mg/dL (<0.3) Aspartate Amino Transferase (AST) 27 U/L (13-40) Alanine Aminotransferase (ALT) 14 U/L (7-40) Alkaline Phosphatase 79 U/L (46-116) B-Type Natriuretic Peptide 155.83 pg/mL (0-100) Total Protein 7.9 g/dL (5.7-8.2) Albumin 4.3 g/dL (3.2-4.8) Vitamin B12 Level > 4000 pg/mL (211-911) Vitamin D 25-Hydroxy 32.2 ng/mL (30.0-100) Thyroid Stimulating Hormone (TSH) 0.83 uIU/mL (0.55-4.78) POC Glucose 169 mg/dl (70-106) Other Laboratory Tests 08/21/25 05:05 Brief Hx & Hospital Course: An 89-year-old Eritrean-speaking female with a history of hypertension and degenerative disc disease presented to [facility] ED after a fall at home while attempting to transfer independently from her wheelchair to the bathroom. She landed on a carpeted floor, striking the left side of her head, hip, back, and shoulder, without loss of consciousness. She reported sharp, non- radiating 10/10 lower back pain aggravated by movement and touch, along with left-sided headache, neck pain, shoulder pain, and hip pain. She denied dizziness, numbness, new focal weakness, or other injuries. Notably, she had a vertebral fracture in March 2025. On ED evaluation, she was tachycardic and hypertensive. Labs including CBC and chemistry panel were within normal limits. Imaging revealed: CT Lumbar Spine: Age-indeterminate severe compression fractures of T12 and L1 with minimal retropulsion, mild to moderate compression fracture of L4, and a possible acute nondisplaced right L1 transverse process fracture. CT Pelvis: Acute, slightly comminuted, largely nondisplaced bilateral pubic tubercle fractures, with contour abnormalities likely compatible with age- indeterminate insufficiency fractures of the left inferior pubic ramus and bilateral acetabula. Shoulder X-ray: Severe degenerative changes of the left glenohumeral joint and possible intra-articular calcification. CT Lumbar Spine (Incidental): 3.4 cm abdominal aortic aneurysm, incompletely assessed.She was admitted for pain control and further evaluation. Pain management included IV morphine, [place], and lidocaine patch. A spine surgery consult was placed, and the patient was kept NPO pending evaluation. She was started on Losartan 50 mg daily for hypertension. On 08/21, the patient was seen at bedside and reported manageable pain with stable vitals. She was informed of her rights regarding discharge planning and privacy, and she agreed to the plan for home hospice. Operations or Procedures PATIENT: CHRISTA SUTTON ACCT: [id number] UNIT: [id number] : 1935 LOC: ER ROOM / BED: / AGE / SEX: 89 / F ADM STATUS: REG ER SERVICE [id number] ORDERING PHYSICIAN: DEZ FLORES MD PROCEDURE(s): LSHD2 - L SHOULDER 2+ VIEW XRAY REASON: L shoulder pain s/p fall ORDER NUMBER(s): [id number], ACCESSION NUMBER(s): [id number] EXAM: XY L SHOULDER 2+ VIEW XRAY INDICATION: Pain L shoulder pain s/p fall TECHNIQUE: 3 views of the left shoulder COMPARISON: None available at the time of dictation. FINDINGS/IMPRESSION: There is no acute fracture, osseous malalignment, or aggressive focal osseous lesion of the left shoulder. There is no radiographically apparent joint space narrowing. Severe degenerative change of the left glenohumeral joint. Likely intra-articular body versus soft tissue calcification measuring up 10 mm of the level of the left proximal humerus. Question age-indeterminate superior endplate height loss of the midthoracic vertebra. -- PATIENT: CHRISTA SUTTON ACCT: [id number] UNIT: [id number] : 1935 LOC: ER ROOM / BED: / AGE / SEX: 89 / F ADM STATUS: REG ER SERVICE [id number] ORDERING PHYSICIAN: DEZ FLORES MD PROCEDURE(s): PL2CT - PELVIS WO CONTRAST REASON: L hip pain s/p fall ORDER NUMBER(s): [id number], ACCESSION NUMBER(s): [id number] EXAM: CT PELVIS WO CONTRAST INDICATION: L hip pain s/p fall TECHNIQUE: Axial images of pelvis without contrast have been obtained along with coronal and sagittal reformatted images. All CT scans at this facility use dose modulation, iterative reconstruction, and/or weight based dosing when appropriate to reduce radiation dose to as low as reasonably achievable. COMPARISON: CT LS SPINE WO CONTRAST on DOS: 08/18/25 FINDINGS: BONES: Significant chronic likely pathologic fracture with prior hardware removal and subsequent surrounding thickening along the right hip joint. Acute slightly comminuted, largely nondisplaced bilateral pubic tubercle fractures contour abnormalities likely compatible with age-indeterminate insufficiency fractures of the left inferior pubic ramus and bilateral acetabula. Significant right acetabular osseous remodeling. Correlate for chronic erosive change of the right hip joint status post prior hardware removal. Superimposed infection not excluded. MUSCLES: Severe asymmetric atrophy of the right hip abductors. JOINT SPACES: Right hip joint space thickening with increased density TENDONS/LIGAMENTS: Intact. OTHER: Vascular calcifications. Mild stool burden. Mild sigmoid diverticulosis. Superior endplate height loss measuring 20-30 percent of the L4. IMPRESSION: 1. Significant chronic likely pathologic fracture with prior hardware removal and subsequent surrounding thickening along the right hip joint. 2. Acute slightly comminuted, largely nondisplaced bilateral pubic tubercle fractures contour abnormalities likely compatible with a age-indeterminate insufficiency fractures of the left inferior pubic ramus and bilateral acetabula. 3. Significant right acetabular osseous remodeling. 4. Correlate for chronic erosive change of the right hip joint status post prior hardware removal. 5. Superimposed infection not excluded. - - PATIENT: CHRISTA SUTTON ACCT: [id number] UNIT: [id number] : 1935 LOC: ER ROOM / BED: / AGE / SEX: 89 / F ADM STATUS: REG ER SERVICE [id number] ORDERING PHYSICIAN: DEZ FLORES MD PROCEDURE(s): LS2CT - LS SPINE WO CONTRAST REASON: low back pain s/p fall ORDER NUMBER(s): [id number], ACCESSION NUMBER(s): [id number] EXAM: CT LS SPINE WO CONTRAST INDICATION: low back pain s/p fall TECHNIQUE: Axial images of the lumbar spine have been obtained along with coronal and sagittal reformatted images. CT scans at this facility use dose modulation, iterative reconstruction, and/or weight based dosing when appropriate to reduce radiation dose to as low as reasonably achievable. COMPARISON: None Dose: CTDIvol: 10.04 mGy, DLP: 283.32 mGy.cm FINDINGS: Age-indeterminate severe compression fractures of T12 and L1 with minimal retropulsion. Age-indeterminate [id number] compression fracture of L4. A faint lucency is seen within the right L1 transverse process such that an acute nondisplaced fracture cannot be excluded. There are degenerative changes of the lumbar spine characterized by endplate osteophytosis. Intervertebral disc height are maintained. There is facet arthropathy most pronounced within the lower lumbar spine. There is mild levoscoliosis. The paraspinal soft tissues are unremarkable. There is an incompletely assessed infrarenal abdominal aortic aneurysm measuring up to at least 3.4 cm. IMPRESSION: 1. Age-indeterminate thoracolumbar fractures as detailed with minimal retropulsion. Comparison with any prior outside imaging is suggested in the assessing acuity and interval change. If clinically indicated, MRI may be beneficial in further assessment. 2. Possible acute nondisplaced right L1 transverse process fracture. 3. Degenerative changes of the lumbar spine as detailed. 4. Incompletely assessed 3.4 cm abdominal aortic aneurysm. Comparison with any prior imaging is suggested in assessing acuity and interval change. If no prior imaging is available, dedicated CTA of the abdomen/pelvis would be beneficial in further characterization. - - PATIENT: CHRISTA SUTTON ACCT: [id number] UNIT: [id number] : 1935 LOC: ER ROOM / BED: / AGE / SEX: 89 / F ADM STATUS: REG ER SERVICE [id number] ORDERING PHYSICIAN: DEZ FLORES MD PROCEDURE(s): HWOCT - HEAD WITHOUT CONTRAST REASON: L head injury s/p fall ORDER NUMBER(s): [id number], ACCESSION NUMBER(s): [id number] CT HEAD WITHOUT CONTRAST INDICATION: L head injury s/p fall EXAM DATE: 08/18/2025 04:52 PM COMPARISON: None RADIATION DOSE: CTDIvol: 50.87 mGy, DLP: 50.87 mGy*cm PROCEDURE: CT scans of the head were obtained from the vertex to the skull base. Sagittal and coronal reconstructions were provided. All CT scans at this medical facility are performed using dose modulation techniques as appropriate to a performed exam including the following: Automated exposure control was utilized; adjustment of the MA and/or KV according to patient size; and use of iterative reconstruction technique. FINDINGS: No acute territorial infarct, intracranial hemorrhage, or mass effect. There are global involutional changes with compensatory prominence of the ventricles and sulci. Patchy periventricular and subcortical white matter hypoattenuation is nonspecific but may be related to small vessel ischemic disease. The orbits are normal. There is mild mucosal thickening within the maxillary antra and ethmoid air cells. The mastoid air cells are clear. The osseous structures are unremarkable. IMPRESSION: 1. No acute territorial infarct, intracranial hemorrhage, or mass effect. 2. Age-related involutional changes. Chronic microvascular changes. - - PATIENT: CHRISTA SUTTON ACCT: [id number] UNIT: [id number] : 1935 LOC: ER ROOM / BED: / AGE / SEX: 89 / F ADM STATUS: REG ER SERVICE [id number] ORDERING PHYSICIAN: DEZ FLORES MD PROCEDURE(s): CS2 - CERVICAL WITHOUT CONTRAST REASON: L neck pain s/p fall ORDER NUMBER(s): [id number], ACCESSION NUMBER(s): [id number] CLINICAL HISTORY: L neck pain s/p fall TECHNIQUE: CT exam of the cervical spine was performed without intravenous contrast. This exam was performed according to our departmental dose optimization program. Up-to-date CT equipment and radiation dose reduction techniques are utilized as appropriate. CTDI 9.09 DLP 9.09 COMPARISON: None Dose: CTDIvol: 9.09 mGy, DLP: 190.8 mGy. cm FINDINGS: There is no acute displaced fracture. There are degenerative changes of the cervical spine characterized by endplate osteophytosis and intervertebral disc space narrowing. There is multilevel mild endplate irregularity. There is grade 1 anterolisthesis of C5 on C6. There is no CT evidence of high-grade spinal stenosis. There is degenerative uncovertebral and facet hypertrophy without significant neural foraminal narrowing. The paraspinal soft tissues are unremarkable. IMPRESSION: 1. No acute displaced fracture. 2. Degenerative changes of the cervical spine as detailed. - - PATIENT: CHRISTA SUTTON ACCT: [id number] : 1935 LOC: ER ROOM / BED: / AGE / SEX: 89 / F ADM STATUS: REG ER SERVICE UNIT: [id number] ORDERING PHYSICIAN: DEZ FLORES MD PROCEDURE(s): EKG - ELECTROCARDIGRAM ORDER NUMBER(s): [id number], ACCESSION NUMBER(s): [id number] [facility] Test Date: 2025-08-18 Test Time: 16:22:23 Pat Name: CHRISTA SUTTON Department: Room: Gender: F Chummer: FAUSTO : 1935 Requested By: DEZ BUTLER Order Number: [id number] Freddie MD: Nuno Diaz Measurements Intervals [place] Rate: 101 P: 45 VT: 175 QRS: -35 QRSD: 88 T: -2 QT: 347 QTc: 450 Interpretive Statements Sinus tachycardia Inferior infarct, old Electronically Signed On 08-18-2025 19:19:47 PDT by Nuno Diaz Condition at Discharge: Stable Final Diagnosis/Problems List Acute nondisplaced right L1 transverse process fracture Severe age indeterminate thoracolumbar fractures with minimal retropulsion Acute slightly comminuted, nondisplaced bilateral pubic tubercle fractures Severe degenerative change of the left glenohumeral joint Abdominal aortic aneurysm Hypertension Discharge Disposition: Hospice - Home Discharge Instruct/Medications Diet: Cardiac 2g Na,low cholest Activity: Bed rest Follow Up/Referral: Follow up with home hospice Medications: as per MAR Scheduled Aspirin (Aspirin Low Dose), 1 TAB PO DAILY, (Reported) Diclofenac Sodium (Topical) (Diclofenac Sodium), 2 TOP BID, (Reported) Losartan Potassium (Losartan Potassium), 1 TAB PO DAILY, (Reported) Senna (Senna), 2 TAB PO DAILY, (Reported) Miscellaneous Medications Lactulose (Lactulose), ML PO, (Reported) Meloxicam (Meloxicam), PO, (Reported) Discharge Statement: "Patient was advised to return to the ER or call 911 if any headaches, dizziness, shortness of breath, chest pain, abdominal pain, bleeding, fevers, or worsening of medical condition. Patient was counseled about treatment plan, medications, possible side effects, patientverbalized understanding. All questions were answered to the best of my ability. This discharge took greater then 30 minutes in planning, reviewing documentation, counseling the patient, and discussing with other team members." ASSESSMENT ASSESSMENT Assessment Acute nondisplaced right L1 transverse process fracture Severe age indeterminate thoracolumbar fractures with minimal retropulsion Acute slightly comminuted, nondisplaced bilateral pubic tubercle fractures Severe degenerative change of the left glenohumeral joint Abdominal aortic aneurysm Hypertension Date of Service: Aug 21, 2025 Billing Provider: TANISHA MINER MD Common Visit Codes: 77648-MPP/OBS DISCH DAY >30min JACKIE MARTINEZ RESIDENT Aug 21, 2025 15:33 TANISHA MINER MD Aug 23, 2025 00:04
[2025-08-21] MEDS: HYDROcodone-ACET 5/325MG TAB PO PRN (19:23)
[2025-08-22] VITALS (7 sets, daily range): BP systolic 97–139; BP diastolic 51–75; PULSE 72–91; RESP 16–18; TEMP 96.5–97.8; O2SAT 94–99
--- NOTE | 2025-08-22 14:37 | DVHPNRES ---
Progress Note Date Seen: Aug 22, 2025 Resident Creating Document: JACKIE MARTINEZ RESIDENT Has the PT tested + for MRSA If YES, has PT been informed?: No Medical Necessity Reason Pt with a Central, PICC or Fol: No Subjective Review of Systems Patient is a Zimbabwean-speaking 89-year-old female with past medical history of hypertension and degenerative disc disease presented to [facility] ED with complaint of body pain and headache following a fall at home. According to her daughter, the patient attempted to transfer independently from the wheelchair to bathroom. During the transfer, she felt dizzy and fell, landing on a carpeted floor and striking the left side of her head, hip, back, and shoulder. She did not lose consciousness. She reports a 10/10 sharp, non- radiating lower back pain aggravated by movement and touch, along with left- sided headache, neck pain, shoulder pain, and hip pain. She denies dizziness, numbness, new focal weakness, or other injuries. Notably, she had a vertebral fracture in March 2025. On ED evaluation, she was tachycardic and hypertensive. Labs including CBC and chemistry panel were within normal limits. Imaging revealed age-indeterminate thoracolumbar fractures, a possible acute nondisplaced right L1 transverse process fracture, and acute, slightly comminuted, largely nondisplaced bilateral pubic tubercle fractures. She was started on IV pain management and admitted for further monitoring and workup. 08/20: Patient is seen today at bedside. On evaluation today, she states she is well, pain is manageable. Her vitals have remained stable. Patient was informed of her right to participate in discharge planning and to privacy; she verbalized understanding and agreement with the plan for home hospice. 08/22: Patient is seen today at bedside. On evaluation today, she states she is well, pain is manageable. Her vitals have remained stable. Patient has planned to discharge in with home hospice when it has been arranged. Objective vital signs Vital Sign Date Time Temp Pulse Resp B/P (MAP) Pulse Ox O2 Delivery O2 Flow Rate FiO2 08/22/25 09:10 97/51 08/22/25 09:00 96.5 72 16 94 96.5 08/22/25 08:00 Room Air* 0 21 Total Intake and Output 08/21/25 08/21/25 08/22/25 15:00 23:00 07:00 Intake Total 450 ml 200 ml Balance 450 ml 200 ml medications Current Medications Medications Dose Ordered Sig/Pina Route Start Time Stop Time Status Last Admin Dose Admin Lidocaine 1 patch DAILY TOP 08/19/25 10:00 08/22/25 09:11 1 PATCH Morphine Sulfate 1 mg Q6HP PRN IV 08/18/25 22:30 08/20/25 15:53 1 MG Losartan Potassium 50 mg DAILY PO 08/19/25 10:00 08/21/25 09:43 50 MG Pantoprazole Sodium 40 mg DAILY IV 08/19/25 10:00 08/22/25 09:11 40 MG Acetaminophen/ Hydrocodone Bitart 1 tab Q6HPRN PRN PO 08/19/25 10:45 08/22/25 04:20 1 TAB Examination General: The patient alert and oriented in person place and time. Patient following commands HEENT: Normocephalic, atraumatic, normal reactive pupils, EOM intact, pink conjunctiva, pink moist mucous membrane Respiratory/pulmonary: Bilateral chest expansion, clear lungs bilaterally, vesicular murmurs present in almost all lung riley, no associated crackles or wheezes. Cardiovascular: Normal RRR, normal S1 and S2, no murmurs Abdomen: Abdomen nondistended, normal bowel sounds, soft, there is no pain to palpation in any of the abdominal quadrants, no palpable masses. Extremities: There are no deformities, there is no peripheral edema present at the lower extremities, decreased ability to flex left hip, pain on palpation of lower back and left and right hip, normal pulses are present Skin: No rashes or pruritus, there is no sacral edema present at this time. Neurological: Intact cranial nerves with no focal neurologic deficits laboratory and microbiology Laboratory Tests 08/21/25 05:05 Test 08/21/25 05:05 Range/Units Serum Glucose 104 74-106 mg/dL Labs and/or images reviewed: Labs reviewed by me, Image(s) reviewed by me Problem List/Assessment/Plan Problem List/Assessment/Plan Acute nondisplaced right L1 transverse process fracture -CT lumbar spine: Possible acute nondisplaced right L1 transfer process fracture -[place] 5/325 mg p.o. once -Morphine 1 mg IV q.6 hours PRN -Lidocaine 1 patch Severe age indeterminate thoracolumbar fractures with minimal retropulsion -CT lumbar spine: Age-indeterminate severe compression fractures of T12 and L1 with minimal retropulsion. Age-indeterminate mild to moderate compression fracture of L4. -As above Acute slightly comminuted, nondisplaced bilateral pubic tubercle fractures -CT pelvis: Acute slightly comminuted, largely nondisplaced bilateral pubic tubercle fractures contour abnormalities likely compatible with a age- indeterminate insufficiency fractures of the left inferior pubic ramus and bilateral acetabula. -As above Severe degenerative change of the left glenohumeral joint -Shoulder X-ray: Likely intra-articular body versus soft tissue calcification measuring up 10 mm of the level of the left proximal humerus. Question age- indeterminate superior endplate height loss of the midthoracic vertebra. Abdominal aortic aneurysm -CT lumbar spine: Incompletely assessed 3.4 cm abdominal aortic aneurysm. -Outpatient follow-up Hypertension -Losartan 50 mg p.o. daily Diet: NPO GI prophylaxis: Protonix 40 mg IV daily Goals of care: Full code, discussed for 20 minutes Plan discussed with patient Plan discussed with Dr. Richards Plan discussed with: Patient, Daughter, Other (Nurse) Date of Service: Aug 22, 2025 Billing Provider: COOPER RICHARDS MD Common Visit Codes: 33531-[id number] INP/OBS CARE(HIGH) Secondary Visit Codes: 87731-[id number] CARE PLAN 30 MINUTES (20 minutes) Addendum Addendum Addendum I was physically present for the chiu portions of the service provided to patient by THE RESIDENT. I have reviewed the documentation, discussed the case with resident and agree with the resident's documentation except as noted. Also the patient's clinical case was discussed with the patient's nurse. This medical document was created using an electronic medical record system with computerized dictation system. Although this document has been carefully reviewed, there might still be some phonetic and typographical errors. These areas are purely typographical due to imperfections of the software programs, and do not reflect any compromise in the patient's medical care. Late signature. JACKIE MARTINEZ Aug 22, 2025 14:37 COOPER RICHARDS MD Aug 24, 2025 14:04
[2025-08-22] MEDS: FLEET ENEMA(ADULT) 135 ML PR ONE (20:34)
[2025-08-23 05:00] VITALS: BP 128/70; PULSE 89; RESP 16; TEMP 97.5; O2SAT 97
[2025-08-23 06:14] LABS: Hematocrit 32.6 % (36.0-46.0); Hemoglobin 11.4 g/dL (12.2-16.2); Mean Corpuscular Hemoglobin 31.4 pg (28.0-32.0); Mean Corpuscular Volume 90.3 fL (80.0-100.0); Nucleated Red Blood Cells % 0.0 %
[2025-08-23 06:22] LABS: Anion Gap 12 (5-15); Carbon Dioxide 23 mmol/L (20-31); Chloride 100 mmol/L (98-107); Potassium 4.4 mmol/L (3.5-5.1)
[2025-08-23 06:23] LABS: Calcium 8.9 mg/dL (8.7-10.4)
[2025-08-23 06:28] LABS: BUN/Creatinine Ratio 18.1 (10.0-20.0); Blood Urea Nitrogen 19 mg/dL (9-23); Glucose 100 mg/dL (74-106)
[2025-08-23 06:34] LABS: Sodium 135 mmol/L (136-145)
[2025-08-23 09:00] VITALS: BP 117/64; PULSE 92; RESP 19; TEMP 98.3; O2SAT 94
[2025-08-23 12:30] VITALS: BP 101/59; PULSE 96; RESP 19; TEMP 98.6; O2SAT 96
[2025-08-23] MEDS ORDERED: LIDO5DIS21 TOP (12:57)
[2025-08-23] MEDS ORDERED: HYDR-4902 PO (13:06)
--- NOTE | 2025-08-23 14:01 | DVHPNRES ---
Progress Note Date Seen: Aug 23, 2025 Resident Creating Document: JOSE M MONTALVO RESIDENT Has the PT tested + for MRSA If YES, has PT been informed?: No Medical Necessity Reason Pt with a Central, PICC or Fol: No Subjective Review of Systems Patient was seen and examined at bedside. Family members were at bedside. Patient states feeling well, pain is mild on her spine. Comprehensively updated family members on patient's current status and plan. Objective vital signs Vital Sign Date Time Temp Pulse Resp B/P (MAP) Pulse Ox O2 Delivery O2 Flow Rate FiO2 08/23/25 12:30 98.6 96 19 101/59 (73) 96 98.6 08/23/25 08:00 Room Air* 0 21 Total Intake and Output 08/22/25 08/22/25 08/23/25 15:00 23:00 07:00 Intake Total 870 ml 240 ml Balance 870 ml 240 ml medications Current Medications Medications Dose Ordered Sig/Pina Route Start Time Stop Time Status Last Admin Dose Admin Lidocaine 1 patch DAILY TOP 08/19/25 10:00 08/22/25 09:11 1 PATCH Morphine Sulfate 1 mg Q6HP PRN IV 08/18/25 22:30 08/20/25 15:53 1 MG Losartan Potassium 50 mg DAILY PO 08/19/25 10:00 08/23/25 10:26 50 MG Pantoprazole Sodium 40 mg DAILY IV 08/19/25 10:00 08/23/25 10:21 40 MG Acetaminophen/ Hydrocodone Bitart 1 tab Q6HPRN PRN PO 08/19/25 10:45 08/22/25 21:28 1 TAB Examination General: The patient alert and oriented in person place and time. Patient following commands HEENT: Normocephalic, atraumatic, normal reactive pupils, EOM intact, pink conjunctiva, pink moist mucous membrane Respiratory/pulmonary: Bilateral chest expansion, clear lungs bilaterally, vesicular murmurs present in almost all lung riley, no associated crackles or wheezes. Cardiovascular: Normal RRR, normal S1 and S2, no murmurs Abdomen: Abdomen nondistended, normal bowel sounds, soft, there is no pain to palpation in any of the abdominal quadrants, no palpable masses. Extremities: There are no deformities, there is no peripheral edema present at the lower extremities, decreased ability to flex left hip, pain on palpation of lower back and left and right hip, normal pulses are present Skin: No rashes or pruritus, there is no sacral edema present at this time. Neurological: Intact cranial nerves with no focal neurologic deficits laboratory and microbiology Laboratory Tests 08/23/25 05:10 Test 08/23/25 05:10 Range/Units Serum Glucose 100 74-106 mg/dL Labs and/or images reviewed: Labs reviewed by me, Image(s) reviewed by me Problem List/Assessment/Plan Problem List/Assessment/Plan #Acute nondisplaced right L1 transverse process fracture -CT lumbar spine: acute nondisplaced right L1 transfer process fracture -Harlem 5/325 mg p.o. once -Morphine 1 mg IV q.6 hours PRN -Spine surgery consult placed: Conservative management with rest and physical therapy was chosen by patient and family -Lidocaine 1 patch #Severe age indeterminate thoracolumbar fractures with minimal retropulsion -CT lumbar spine: Age-indeterminate severe compression fractures of T12 and L1 with minimal retropulsion. Age-indeterminate mild to moderate compression fracture of L4. #Acute slightly comminuted, nondisplaced bilateral pubic tubercle fractures -CT pelvis: Acute slightly comminuted, largely nondisplaced bilateral pubic tubercle fractures contour abnormalities likely compatible with a age- indeterminate insufficiency fractures of the left inferior pubic ramus and bilateral acetabula. 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 Question age- indeterminate superior endplate height loss of the midthoracic vertebra. #Abdominal aortic aneurysm -CT lumbar spine: Incompletely assessed 3.4 cm abdominal aortic aneurysm. -Outpatient follow-up #Hypertension -Losartan 50 mg p.o. daily Diet: cardiac diet GI prophylaxis: Protonix 40 mg IV daily Patient had been DC since 08/21, she has been stable ever since, vital signs heavy within normal limits, pain has been managed with Har[place].. She was informed of her rights regarding discharge planning and privacy, and she agreed to the plan for home. She will be transported to by [facility]. Family members agreed with this plan. We spent over 30 minute explained the plan. Patient will be discharged with lidocaine patch and Harlem. Plan discussed with Dr. Richards Plan discussed with: Patient, Daughter, Other (RN, Granddaugther) My Orders My Orders Orders - JOSE M MONTALVO RESIDENT Procedure Category Date Status Time * Motor Analyst CONS 08/23/25 Transmitted Consult 08:04 Discharge DISCHARGE 08/23/25 Transmitted 08:04 Dietary Evaluation Review Recommendations by RD: Protein Supplementation Comments: 1) Initiate Ensure High Protein qd 2) Liberalize diet from cardiac to 2g Na 3) Encourage optimal PO intake 4) Follow-up with orthopedic surgeon/physical therapy as need 5) Continue to monitor I&O, labs, and skin integrity Expected Outcomes/Goals: 1) appetite and labs to improve 2) f/u in 3-5 days Date of Service: Aug 23, 2025 Billing Provider: COOPER RICHARDS MD Common Visit Codes: 14162-OQR/OBS DISCH DAY >30min Addendum Addendum Addendum I was physically present for the chiu portions of the service provided to patient by THE RESIDENT. I have reviewed the documentation, discussed the case with resident and agree with the resident's documentation except as noted. Also the patient's clinical case was discussed with the patient's nurse. This medical document was created using an electronic medical record system with computerized dictation system. Although this document has been carefully reviewed, there might still be some phonetic and typographical errors. These areas are purely typographical due to imperfections of the software programs, and do not reflect any compromise in the patient's medical care. Late signature. JOSE M MONTALVO RESIDENT Aug 23, 2025 14:01 COOPER RICHARDS MD Aug 24, 2025 14:05
--- NOTE | 2025-08-25 18:53 | DVHSR ---
APPROVED REPORT EXAM: LIMITED Two-dimensional and M-mode echocardiogram with Doppler and color Doppler. Blood Pressure: 123/63 mmHg INDICATION Hypertension RISK FACTORS Height: 4' 9", Weight: 101 DIMENSIONS LVDd3.6 (3.8-5.7cm)LA (2D)3.6 (1.9-4.0cm)Aortic Root3.4 (2.0-3.7cm) LVDs2.5 (2.5-4.0cm)LA (MM) (1.9-4.0cm)Aortic Cusp Exc1.4 (1.5-2.0cm) EF (%) 60.0 (55-70%)Rt. Atrium3.3 (1.9-4.0cm)Asc. Aorta cm IVSd1.0 (0.7-1.1cm)RV (D) (1.8-2.4cm) PWd1.1 (0.7-1.1cm) Mitral Valve MitralMitral Stenosis E wave0.90m/sMV Mean GR.mmHg A wave1.30m/sMV Peak GR.mmHg E/A ratio0.72D MVAcm2 Aortic Valve Aortic ValveAortic Stenosis V11.10m/[place] Mean GR.5mmHg V21.30m/[place] Peak GR.8mmHg LVOT Diameter2.1 (1.8-2.4cm)Doppler AVA2.93cm2 AI P 1/2 [id number] Other Information Quality : Technically LimitedRhythm : Technically limited study due to body habitus. Conclusion Technically difficult study, difficult acoustic Windows. Off axis views LAE, Aortic root enlargement. Valves are normal EF of 65% wth normal RV function. Normal Doppler. No masses or vegetations. No PE.
== END 2025-08-23 15:00 | disposition hospice, home (50) | DRG 347 ==
LOC: ER 16:02 → OVERFLOW 22:21 → WEST WING 08-19 01:24
PROVIDERS: ADMIT Internal Medicine; ATTEND Internal Medicine
DX: S32.018A Other fracture of first lumbar vertebra, initial encounter for closed fracture (principal); Z51.5 Encounter for palliative care; I10 Essential (primary) hypertension; S32.591A Other specified fracture of right pubis, initial encounter for closed fracture; S32.592A Other specified fracture of left pubis, initial encounter for closed fracture; I71.40 Abdominal aortic aneurysm, without rupture, unspecified; M47.816 Spondylosis without myelopathy or radiculopathy, lumbar region; Z90.710 Acquired absence of both cervix and uterus; Z99.3 Dependence on wheelchair; Z96.649 Presence of unspecified artificial hip joint; W18.39XA Other fall on same level, initial encounter; Z91.81 History of falling; Y93.89 Activity, other specified; Y92.098 Other place in other non-institutional residence as the place of occurrence of the external cause; Y99.8 Other external cause status
CPT/HCPCS: 36415; 70450; 72125; 72131; 72192; 73030; 80048; 80076; 80307; 82306; 82607; 82962; 83036; 83605; 83735; 83880; 84100; 84443; 84484; 85025; 85610; 85730; 93005; 93306; G0378; J2470